=== PATIENT | female | born 2000 | race Caucasian/White ===

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

== ENCOUNTER 2019-03-25 22:57 | Emergency (ER) | payer BC, OTHER ==
[~2019-03-25] VITALS: Ht 172.7 cm; Wt 118.0 kg
[~2019-03-25 22:57] MED LIST: Flexeril; fLEXERIL
[2019-03-26 00:25] LABS: CLARITY,URINE SL CLOUDY; COLOR,URINE YELLOW
[2019-03-26 00:26] LABS: AMORPHOUS SEDIMENT,UR LARGE AMOR PHOSPHATE /LPF; BACTERIA,URINE NEGATIVE /HPF; BILIRUBIN,URINE NEGATIVE (NEGATIVE); GLUCOSE, URINE (UA) NEGATIVE (NEGATIVE); KETONES,URINE NEGATIVE (NEGATIVE); LEUKOCYTE ESTERASE ,URINE NEGATIVE (NEGATIVE); NITRITE,URINE NEGATIVE (NEGATIVE); PROTEIN,URINE NEGATIVE (NEGATIVE); RBC,URINE 0-2 /HPF; WBC,URINE 0-2 /HPF
[2019-03-26] MEDS ORDERED: RX-DOXYCYCLINE 100 MG (VIBRAMYCIN) TAB PPK#2 PO STA (01:59)
[2019-03-26] MEDS ORDERED: BENZONATATE 100 MG (TESSALON) CAPSULE PO SCH (02:00)
[2019-03-26] MEDS ORDERED: BENZ100C18 PO (02:01)
[2019-03-26] MEDS ORDERED: DOXY100C42 PO (02:01)
[2019-03-26] MEDS ORDERED: GUAI1TBM19 PO (02:01)
[2019-03-26] MEDS ORDERED: METH4TAB PO (02:01)
--- NOTE | 2019-03-26 02:01 | ED Cough/URI ---
General Chief Complaint: Cough/Cold/Flu Symptoms Stated Complaint: COUGH,ABD PAIN Nursing Triage Note: AMBULATORY TO ED ROOM 8 WITH C/O COUGH X5 DAYS AND RIGHT AND LEFT FLANK PAIN. HAS TAKEN OTC MEDICATIONS WITHOUT RELIEF. Sepsis Screen: No Definite Risk Source: patient History of Present Illness Date Seen by Provider: Mar 26, 2019 Time Seen by Provider: 00:10 Initial Comments PT ARRIVES VIA POV FROM HOME C/O PRODUCTIVE COUGH FOR 5 DAYS, WITH CLEAR TO YELLOW SPUTUM HAS HAD BILATERAL FLANK PAIN / BILATERAL LATERAL CHEST-RIB PAIN FOR THE LAST 2-3 DAYS C/O SHORTNESS OF BREATH NO KNOWN FEVER, BUT HAS NOT CHECKED TEMP NO HEADACHE NO BODY ACHES NO NAUSEA/VOMITING NO URINARY SYMPTOMS HAS NOT SOUGHT CARE UNTIL TODAY SYMPTOMS NO DIFFERENT TODAY NO RELIEF WITH OTC MEDICATIONS FOR COUGH/CONGESTION. LMP 2 WEEKS AGO, AND STARTED AGAIN TODAY. HAS BEEN SPOTTING EVERY 1-2 WEEKS FOR THE LAST 2 MONTHS. HAS NEXPLANON IN PLACE FOR THE LAST 2 YEARS. PCP: DHIRAJ JOHNS AT [facility] Allergies and Home Medications Allergies Coded Allergies: No Known Drug Allergies (Unverified , 08/25/17) Home Medications Benzonatate 100 Mg Capsule, 1-2 TAB PO TID Prescribed by: ROLANDO MCMAHON on 03/26/19200 Doxycycline Monohydrate 100 Mg Capsule, 100 MG PO BID Prescribed by: ROLANDO MCMAHON on 03/26/19200 Guaifenesin/Dextromethorphan 1 Each Tbmp.12hr, 1 EACH PO BID Prescribed by: ROLANDO MCMAHON on 03/26/19200 Methylprednisolone 4 Mg Tab.ds.pk, 4 MG PO UD Prescribed by: ROLANDO MCMAHON on 03/26/19200 [Flexeril] , 5 MG twice a day Prescribed by: JOSUE TUCKER on 08/25/17 1513 [fLEXERIL] , 5 MG TWICE A DAY Prescribed by: JOSUE TUCKER on 08/25/17 1525 Patient Home Medication List Home Medication List Reviewed: Yes Review of Systems Review of Systems Constitutional: no symptoms reported; No chills, No diaphoresis, No dizziness, No fever EENTM: see HPI; No nose congestion, No throat pain Respiratory: see HPI, cough, phlegm, short of breath Cardiovascular: see HPI, chest pain Gastrointestinal: see HPI; No nausea, No vomiting Genitourinary: no symptoms reported Musculoskeletal: see HPI, back pain Skin: no symptoms reported Psychiatric/Neurological: No Symptoms Reported Hematologic/Lymphatic: No Symptoms Reported Immunological/Allergic: no symptoms reported Past Kazcogk-Rboygj-Dqiohe Hx Past Med/Social Hx: Reviewed and Corrections made Patient Social History Alcohol Use: Denies Use Recreational Drug Use: Yes (THC) Drug of Choice: MARIJUANA Smoking Status: Current Everyday Smoker (1/2 PPD) Type Used: Cigarettes (1/2 PPD) Recent Foreign Travel: No Contact w/Someone Who Travel: No Recent Infectious Disease Expo: No Recent Hopitalizations: No Physical Abuse: No Sexual Abuse: No Mistreated: No Fear: No Seasonal Allergies Seasonal Allergies: No Past Medical History Surgeries: No Respiratory: Yes Asthma Cardiac: No Neurological: No : No Reproductive Disorders: No Genitourinary: No Gastrointestinal: No Musculoskeletal: No Endocrine: No HEENT: No Cancer: No Psychosocial: Yes Anxiety, Depression Integumentary: No Blood Disorders: No Physical Exam Vital Signs - First Documented 03/26/19 03/26/19 00:03 02:14 Temp 36.9 Pulse 82 Resp 18 B/P (MAP) 141/87 (105) Pulse Ox 98 O2 Delivery Room Air Capillary Refill : Less Than 3 Seconds Height: 5'8.00" Weight: 250lbs. oz. 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, no motor/sensory deficits, alert, normal mood/affect, oriented x 3 Skin: normal color, warm/dry, tattoos/piercings Progress/Results/Core Measures Suspected Sepsis Recent Fever Within 48 Hours: No Infection Criteria Present: Suspected New Infection New/Unexplained Altered Menta: No Sepsis Screen: No Definite Risk SIRS Temperature: Pulse: 82 Respiratory Rate: 18 Blood Pressure 141 /87 Mean: 105 Results/Orders Lab Results Laboratory Tests Test 03/26/19 00:10 Range/Units Urine Color YELLOW Urine Clarity SL CLOUDY Urine pH 8.0 5-9 Urine Specific Hayden 1.020 1.016-1.022 Urine Protein NEGATIVE NEGATIVE Urine Glucose (UA) NEGATIVE NEGATIVE Urine Ketones NEGATIVE NEGATIVE Urine Nitrite NEGATIVE NEGATIVE Urine Bilirubin NEGATIVE NEGATIVE Urine Urobilinogen 0.2 < = 1.0 MG/DL Urine Leukocyte Esterase NEGATIVE NEGATIVE Urine RBC (Auto) 3+ H NEGATIVE Urine RBC 0-2 /HPF Urine WBC 0-2 /HPF Urine Crystals PRESENT H /LPF Urine Amorphous Sediment LARGE BLANCA PHOSPHATE H /LPF Urine Bacteria NEGATIVE /HPF Urine Casts NONE /LPF Urine Mucus NEGATIVE /LPF Urine Culture Indicated NO Micro Results Microbiology 03/26/19 Influenza Types A,B Antigen (STEVE) - Final, Complete My Orders Orders - ROLANDO MCMAHON DO Urine Bedside (03/26/19 00:09) Ua Culture If Indicated (03/26/19 00:09) Influenza A And B Antigens (03/26/19 00:09) Chest Pa/Lat (2 View) (03/26/19 00:17) Rx-Doxycycline Tablet (Rx-Vibramycin Tab (03/26/19 01:59) Benzonatate Capsule (Tessalon Perles) (03/26/19 02:00) Vital Signs/I&O 03/26/19 03/26/19 03/26/19 00:03 00:03 02:14 Temp 36.9 36.9 Pulse 82 88 Resp 18 18 B/P (MAP) 141/87 (105) 133/88 (105) Pulse Ox 98 O2 Delivery Room Air Room Air Capillary Refill : Less Than 3 Seconds Blood Pressure Mean: 105 Diagnostic Imaging Comments CXR--NO ACUTE PROCESS, PENDING RADIOLOGIST REVIEW Reviewed: Reviewed by Me Departure Impression Primary Impression: Bronchitis Additional Impression: Chest wall pain Disposition: 01 HOME, SELF-CARE Condition: Stable Departure-Patient Inst. Referrals: [facility] (PCP/Family) Primary Care Physician Patient Instructions: Acute Bronchitis, Adult (DC), Costochondritis (DC) Add. Discharge Instructions: LOTS OF CLEAR LIQUIDS TYLENOL NEEDED FOR PAIN OR FEVER FOLLOW UP WITH [facility] IN 3-4 DAYS IF NO BETTER All discharge instructions reviewed with patient and/or family. Voiced understanding. Scripts Guaifenesin/Dextromethorphan (Mucinex Dm ER 1,200-60 mg Tab) 1 Each Tbmp.12hr 1 EACH PO BID for 10 Days, #20 EA Prov: ROLANDO MCMAHON DO 03/26/19 Benzonatate (TESSALON PERLES) 100 Mg Capsule 1-2 TAB PO TID for Cough, #30 CAP Prov: ROLANDO MCMAHON DO 03/26/19 Methylprednisolone (Medrol) 4 Mg Tab.ds.pk 4 MG PO UD, #1 PKG Prov: ROLANDO MCMAHON DO 03/26/19 Doxycycline Monohydrate (Doxycycline Monohydrate) 100 Mg Capsule 100 MG PO BID, #20 CAP Prov: ROLANDO MCMAHON DO 03/26/19 ROLANDO MCMAHON DO Mar 26, 2019 02:01
[2019-03-26 02:14] VITALS: BP 133/88
--- NOTE | 2019-03-26 05:45 | Diagnostic Imaging Report ---
INDICATION: Chest tightness COMPARISON: None FINDINGS: Frontal and lateral views of the chest demonstrate normal heart size and pulmonary vascularity. The lungs are clear. There are no signs of infiltrate, pleural effusions or pneumothoraces. The visualized osseous structures show no acute abnormalities. IMPRESSION: 1. No acute process. No signs of infiltrates, effusions or pneumothoraces. Dictated by: Dictated on workstation # [id number]
== END 2019-03-26 02:15 | disposition home or self-care (01) ==
LOC: EDUNIT# 22:57 → ER 22:59
DX: J40 Bronchitis, not specified as acute or chronic (principal); R07.89 Other chest pain; J45.909 Unspecified asthma, uncomplicated; F17.210 Nicotine dependence, cigarettes, uncomplicated
CPT/HCPCS: 71046; 81000; 84703; 87804

== ENCOUNTER 2019-10-22 14:02 | Emergency (ER) | payer BC ==
[~2019-10-22] VITALS: Ht 172 cm; Wt 99.7 kg
[~2019-10-22 14:02] MED LIST changes: +BENZ100C18 PO; +DOXY100C42 PO; +GUAI1TBM19 PO; +METH4TAB PO
--- NOTE | 2019-10-22 14:44 | ED Cough/URI ---
General Stated Complaint: COVID SYMPTOMS Source: patient Exam Limitations: no limitations History of Present Illness Date Seen by Provider: Oct 22, 2019 Time Seen by Provider: 14:26 Initial Comments Here with report of cough, low-grade fever, mild shortness of breath, vomiting and mild stomach upset. She is also told weeks . Unsure about exposure. Does complain of nasal congestion limiting smell. Follows with Dr. Clay. Timing/Duration: other (2 days) Severity/Quality: mild Modifying Factors: Worse With Coughing; Improves With Rest Associated Symptoms: cough, fever/chills, nasal congestion, shortness of breath, sore throat Allergies and Home Medications Allergies Coded Allergies: No Known Drug Allergies (Unverified , 08/25/17) Home Medications Benzonatate 100 Mg Capsule, 1-2 TAB PO TID Prescribed by: ROLANDO MCMAHON on 03/26/19200 Doxycycline Monohydrate 100 Mg Capsule, 100 MG PO BID Prescribed by: ROLANDO MCMAHON on 03/26/19200 Guaifenesin/Dextromethorphan 1 Each Tbmp.12hr, 1 EACH PO BID Prescribed by: ROLANDO MCMAHON on 03/26/19200 Methylprednisolone 4 Mg Tab.ds.pk, 4 MG PO UD Prescribed by: ROLANDO MCMAHON on 03/26/19200 [Flexeril] , 5 MG twice a day Prescribed by: JOSUE TUCKER on 08/25/17 1513 [fLEXERIL] , 5 MG TWICE A DAY Prescribed by: JOSUE TUCKER on 08/25/17 1525 Patient Home Medication List Home Medication List Reviewed: Yes Review of Systems Review of Systems Constitutional: see HPI; No chills, No fever EENTM: see HPI Respiratory: see HPI Cardiovascular: no symptoms reported Gastrointestinal: abdominal pain, nausea, vomiting Genitourinary: no symptoms reported Musculoskeletal: no symptoms reported Psychiatric/Neurological: Headache; Denies Weakness Past Ngosxxa-Uopfbd-Fzidhr Hx Past Med/Social Hx: Reviewed Nursing Past Med/Soc Hx Patient Social History Alcohol Use: Denies Use Recreational Drug Use: No Drug of Choice: MARIJUANA Smoking Status: Current Everyday Smoker Type Used: Cigarettes Recent Hopitalizations: No Seasonal Allergies Seasonal Allergies: No Past Medical History Surgeries: No Respiratory: Yes Asthma Cardiac: No Neurological: No Reproductive Disorders: No Genitourinary: No Gastrointestinal: No Musculoskeletal: No Endocrine: No HEENT: No Cancer: No Psychosocial: Yes Anxiety, Depression Integumentary: No Blood Disorders: No Family Medical History Reviewed Nursing Family Hx No Pertinent Family Hx Physical Exam Capillary Refill : Height: 5'8.00" Weight: 250lbs. oz. 113.187169ah; 39.00 BMI Method:Stated General Appearance: WD/WN, no apparent distress HEENT: PERRL/EOMI, pharyngeal erythema, other (Mild erythema of both TMs) Neck: full range of motion, supple Respiratory: lungs clear, normal breath sounds Cardiovascular: regular rate, rhythm, no murmur Neurologic/Psychiatric: alert, oriented x 3 Skin: normal color, warm/dry Progress/Results/Core Measures Suspected Sepsis SIRS Temperature: Pulse: Respiratory Rate: Blood Pressure / Mean: Results/Orders Vital Signs/I&O Capillary Refill : Progress Note : Progress Note Seen and evaluated. Patient's main concern is COVID-19. Vital signs normal. COVID-19 screening swab done. Discharged home with return precautions. Patient verbalize understanding instructions and agreement with plan. Departure Impression Primary Impression: Viral upper respiratory infection Additional Impression: COVID-19 evaluation Disposition: 01 HOME, SELF-CARE Condition: Improved Departure-Patient Inst. Decision time for Depature: 14:43 Referrals: [facility] (PCP[facility]Family) Primary Care Physician Patient Instructions: Coronavirus Disease 2019 (COVID-19) (DC) Add. Discharge Instructions: Drink plenty of fluids and get plenty of rest. You will need to remain on q uarantine until test results are noted. If they are negative, you will need to be isolated for 3 days after symptoms resolve. If they are positive, the health department will call you and direct quarantine timeframe. You may take Tylenol/acetaminophen 1000 mg every 8 hours as needed for fever. Return for worse pain, fever, vomiting, weakness, breathing problems or other concerns as needed. You may follow-up with Dr. Clay via phone for other concerns and/or work note if needed. XAVIER JULES MD Oct 22, 2019 14:44
[2019-10-22 14:55] VITALS: BP 132/85
[2019-10-22] MEDS ORDERED: RT-ALBUINH IH (15:34)
--- OUTSIDE RECORDS SUMMARY | 2019-10-22 15:50 | XMS REPORT | Continuity of Care Document ---
Demographics Preferred Language Unknown Marital Status Unknown Denominational Affiliation Unknown Race Unknown Ethnic Group Unknown Author Organization Unknown Address Unknown Phone Unavailable Allergies Active Description Code Type Severity Reaction Onset Reported/Identified Relationship to Patient Clinical Status Yes No Known Drug Allergies [id number] Drug Allergy Unknown N/A 08/25/2017 Medications There is no data. Problems Date Dx Coded Attending Type Code Diagnosis Diagnosed By 08/25/2017 CAITLIN DALE, JOSUE Howard Ot M54 .5 LOW BACK PAIN 08/27/2017 JOSUE TUCKER MD Ot M54 .5 LOW BACK PAIN 09/05/2017 A V70.5 HEAL TH EXAMINATION OF DEFINED SUBPOPULATIONS 09/05/2017 A Z02.1 ENCO UNTER FOR PRE- EMPLOYMENT EXAMINATION 03/26/2019 LISANDRO DO, ROLANDO K Ot F17.210 NICOTINE DEPENDENCE, CIGARETTES, UNCOMPL 03/26/2019 LISANDRO DO, ROLANDO K Ot J40 BRONCHITIS, NOT SPECIFIED ACUTE OR CH 03/26/2019 LISANDRO DO, ROLANDO K Ot J45.909 UNSPECIFIED ASTHMA, UNCOMPLICATED 03/26/2019 LISANDRO DO, ROLANDO K Ot R05 COUGH 03/26/2019 LISANDRO DO, ROLANDO K Ot R07.89 OTHER CHEST PAIN 03/27/2019 LISANDRO DO, ROLANDO K Ot F17.210 NICOTINE DEPENDENCE, CIGARETTES, UNCOMPL 03/27/2019 LISANDRO DO, ROLANDO K Ot J40 BRONCHITIS, NOT SPECIFIED ACUTE OR CH 03/27/2019 LISANDRO DO, ROLANDO K Ot J45.909 UNSPECIFIED ASTHMA, UNCOMPLICATED 03/27/2019 LISANDRO DO, ROLANDO K Ot R05 COUGH 03/27/2019 LISANDRO DO, ROLANDO K Ot R07.89 OTHER CHEST PAIN Procedures There is no data. Results Test Result Range Measles/Mumps/Rubella Immunity - 8 11:03 Rubella Antibodies, IgG 4.20 index Immun e >0.99 Rubeola Ab, IgG 33.5 AU/mL Immune >29.9 Mumps Abs, IgG 119.0 AU/mL Immune >10.9 Hep B Surface Ab - 09/05/17 11:03 Hep B Surface Ab, Qual Reactive Varicella-Zoster V Ab, IgG - 09/05/17 11 :03 Varicella Zoster IgG <135 index Immune > 165 Drug Screen + ETOH - 09/05/17 11:03 Interior Decorator Painting Carlie Resendez Donor ID By Photo ID Ethanol, Urine <10.00 mg/dL 20.00-80.00 Location [facility] Reason For Test Pre-Employment Temperature In Range YES Deg F 90.00-100 .00 Urine Amphetamines NEGATIVE Urine Barbiturates NEGATIVE Urine Benzodiazepines NEGATIVE Urine Cocaine NEGATIVE Urine MDMA NEGATIVE Urine Methadone NEGATIVE Urine Methamphetamines NEGATIVE Urine Opiates NEGATIVE Urine Oxycodone NEGATIVE Urine PCP NEGATIVE Urine THC Metabolite NEGATIVE Varicella-Zoster V Ab, IgG - 09/05/17 11 :03 VARICELLA ZOSTER IGG <135 INDEX IMMUNE > 165 TSH - 07/14/18 14:55 TSH 3.65 mIU/L NRG CULTURE, THROAT - 09/24/18 13:21 CULTURE, THROAT SEE NOTE NRG CULTURE, ANAEROBIC AND AEROBIC - 9 14:50 CULTURE, ANAEROBIC BACTERIA W/GRAM STAIN SEE NOTE NRG CULTURE, AEROBIC BACTERIA SEE NOTE NRG GC/CHLAMYDIA (SWAB OR URINE)-RAPID - 06/24 16:52 CHLAMYDIA TRACHOMATIS RNA, TMA NOT DETECTED NOT DETECTED NEISSERIA GONORRHOEAE RNA, TMA NOT DETECTED NOT DETECTED COMMENT NRG CULTURE, GENITAL - 01/08/19 16:52 CULTURE, GENITAL SEE NOTE NRG Complete urinalysis with reflex to cultu re - 03/26/19 00:10 Urine color determination YELLOW NRG Urine clarity determination SL CLOUDY N RG Urine pH measurement by test strip 8.0 5-9 Specific gravity of urine by test strip 1.020 1.016-1.022 Urine protein assay by test strip, semi-quantitative NEGATIVE NEGATIVE Urine glucose detection by automated test strip NE GATIVE NEGATIVE Erythrocytes detection in urine sediment by light micr oscopy 3+ NEGATIVE Urine ketones detection by automated test strip NE GATIVE NEGATIVE Urine nitrite detection by test strip NEGATIVE NEGATIVE Urine total bilirubin detection by test strip NEGA TIVE NEGATIVE Urine urobilinogen measurement by automated test strip (mass/volume) 0.2 mg/dL < = 1.0 Urine leukocyte esterase detection by dipstick NEG ATIVE NEGATIVE Automated urine sediment erythrocyte cou nt by microscopy (number/high power field) [HPF] NRG Automated urine sediment leukocyte count by microscopy (number/high power field) [HPF] NRG Bacteria detection in urine sediment by light microsco py NEGATIVE NRG Crystals detection in urine sediment by light microsco py PRESENT NRG Casts detection in urine sediment by light microscopy NONE NRG Mucus detection in urine sediment by light microscopy NEGATIVE NRG Complete urinalysis with reflex to culture NO NRG Amorphous sediment detection in urine sediment by ligh t microscopy LARGE BLANCA PHOSPHATE NRG Influenza virus A and B antigen detectio n - 03/26/19 00:17 FLU RESULT NEGATIVE FOR INFLUENZA A AND B ANTIGENS BY IA NRG TEST, SERUM (QUAL) - 08/27/19 14:03 HCG, TOTAL, QL POSITIVE See Note: Encounters ACCT No. Visit Date/Time Discharge Status Pt. Type Provider Facility Loc./Unit Complaint [id number] 09/06/2017 14:18:00 Document Registration [id number] 08/27/2019 14:00:00 08/27/2019 23:59:5 9 CLS Outpatient SUDHIR JOHNS [facility] [id number] 08/27/2019 14:00:00 Document Registration [id number] 01/08/2019 15:40:00 Document Registration [id number] 11/13/2018 10:40:00 Document Registration [id number] 09/24/2018 12:20:00 Document Registration [id number] 07/14/2018 14:00:00 Document Registration [id number] 09/05/2017 10:57:00 Document Registration [id number] 07/14/2018 14:00:00 07/14/2018 23:59:5 9 CLS Outpatient JAMIE CACERES LAC [facility] [id number] 03/25/2019 22:59:00 019 02:15:00 DIS Emergency ROLANDO MCMAHON DO a [facility] ER COUGH,ABD PAIN [id number] 08/25/2017 12:07:00 018 15:45:00 DIS Emergency CAITLIN DALE, JOSUE Bowman [facility] ER BACK PAIN/WORK COMP
== END 2019-10-22 14:55 | disposition home or self-care (01) ==
LOC: EDUNIT# 14:02 → ER 14:06
DX: J06.9 Acute upper respiratory infection, unspecified (principal); J45.909 Unspecified asthma, uncomplicated; F17.210 Nicotine dependence, cigarettes, uncomplicated; Z20.828 Contact with and (suspected) exposure to other viral communicable diseases; Z79.52 Long term (current) use of systemic steroids
CPT/HCPCS: 99282; U0002; 87635

== ENCOUNTER → 2019-12-15 | Outpatient (CLI) | payer BC ==
[~2019-12-15] MED LIST changes: +RT-ALBUINH IH
--- NOTE | 2019-12-15 14:03 | Diagnostic Imaging Report ---
INDICATION: Size and dates. TECHNIQUE: Multiple real-time grayscale images were obtained over the gravid uterus. COMPARISON: None. FINDINGS: There is a single living intrauterine . The fetus is in a cephalic presentation. The biometry correlates with a gestational age of 20 weeks 2 days. The placenta is posterior. There is no previa. Amniotic fluid index is 9.8. Cervical length is 7.5 cm. The anatomical survey is unremarkable. This includes three-vessel cord and four-chambered heart. The heart rate is 144 bpm. The maternal adnexa is unremarkable. Biometrical measurements are as follows: Biparietal 4.48 cm, age 19 weeks 4 days. Head circumference 17.50 cm, age 20 weeks 1 days. Abdominal circumference 15.05 cm, age 20 weeks 3 days. Femur length 3.34 cm, age 20 weeks 4 days. Sonographic estimate age: 20 weeks 2 days. Sonographic estimated date of delivery: 05/01/2020. Estimated Weight: 345 gm (+/- 50 gm). LMP percentile: 55%. heart rate: 144 beats per minute. number: 1 of 1. IMPRESSION: Single living intrauterine with sonographically estimated gestational age of 20 weeks 2 days and estimated date of confinement May 01, 2020. Dictated by: Dictated on workstation # [id number]
== END ==
LOC: RAD 12:00
PROVIDERS: ATTEND Nurse Practitioner Women's Health
DX: Z34.92 Encounter for supervision of normal pregnancy, unspecified, second trimester (principal); Z3A.20 20 weeks gestation of pregnancy
CPT/HCPCS: 76805

== ENCOUNTER 2020-03-03 23:13 | Emergency (ER) | payer BC, MEDICAID ==
[~2020-03-03] VITALS: Ht 172.7 cm; Wt 115.8 kg
--- NOTE | 2020-03-03 23:43 | ED General ---
General Chief Complaint: OB > 20 WEEKS Stated Complaint: PREG CK Nursing Triage Note: Patient is concerned about decreased movement. Patient states she counted kicks today and had 4 in 4 hours. Nursing Sepsis Screen: No Definite Risk Source of Information: Patient History of Present Illness Date Seen by Provider: Mar 03, 2020 Time Seen by Provider: 23:18 Initial Comments 19-year-old female that is presenting at 31 weeks and 4/7 days EGA. She reports having decreased movement in the last 48 hours. She had count and approximately 4 kicks in about 4 hours with the last one around 2029. She has had no vaginal bleeding or discharge. She has had some low back pain and c ramping that felt that it was related to her uterus stretching. She has no pain or burning with urination. She denies any fever or chills. Allergies and Home Medications Allergies Coded Allergies: No Known Drug Allergies (Unverified , 08/25/17) Home Medications Albuterol Sulfate 1 Puff Puff, 2 PUFF IH Q4H PRN for WHEEZING 1 PUFF = 90 MCG Prescribed by: XAVIER JULES on 10/22/19 153 Benzonatate 100 Mg Capsule, 1-2 TAB PO TID Prescribed by: ROLANDO MCMAHON on 03/26/19200 Doxycycline Monohydrate 100 Mg Capsule, 100 MG PO BID Prescribed by: ROLANDO MCMAHON on 03/26/19200 Guaifenesin/Dextromethorphan 1 Each Tbmp.12hr, 1 EACH PO BID Prescribed by: ROLANDO MCMAHON on 03/26/19200 Methylprednisolone 4 Mg Tab.ds.pk, 4 MG PO UD Prescribed by: ROLANDO MCMAHON on 03/26/19200 [Flexeril] , 5 MG twice a day Prescribed by: JOSUE TUCKER on 08/25/17 1513 [fLEXERIL] , 5 MG TWICE A DAY Prescribed by: JOSUE TUCKER on 08/25/17 1525 Patient Home Medication List Home Medication List Reviewed: Yes Review of Systems Review of Systems Constitutional: No chills, No fever EENTM: no symptoms reported Respiratory: no symptoms reported Cardiovascular: no symptoms reported Gastrointestinal: no symptoms reported Genitourinary: see HPI : Yes (31 weeks 4/7 days) Musculoskeletal: no symptoms reported Skin: no symptoms reported Psychiatric/Neurological: No Symptoms Reported Past Aodxwfs-Azonxc-Usergz Hx Past Med/Social Hx: Reviewed Nursing Past Med/Soc Hx Patient Social History Alcohol Use: Denies Use Recreational Drug Use: No Drug of Choice: MARIJUANA Smoking Status: Current Everyday Smoker Type Used: Cigarettes Recent Foreign Travel: No Contact w/Someone Who Travel: No Recent Infectious Disease Expo: No Recent Hopitalizations: No Physical Abuse: No Sexual Abuse: No Mistreated: No Fear: No Immunizations Up To Date PED Vaccines UTD: Yes Seasonal Allergies Seasonal Allergies: No Past Medical History Surgeries: No Respiratory: Yes Asthma Cardiac: No Neurological: No Reproductive Disorders: No Genitourinary: No Gastrointestinal: No Musculoskeletal: No Endocrine: No HEENT: No Cancer: No Psychosocial: Yes Anxiety, Depression Integumentary: No Blood Disorders: No Family Medical History No Pertinent Family Hx Physical Exam Vital Signs Vital Signs - First Documented 03/03/20 23:15 Temp 37.0 Pulse 90 Resp 20 B/P (MAP) 162/97 (118) Pulse Ox 96 O2 Delivery Room Air Capillary Refill : Less Than 3 Seconds Height, Weight, BMI Height: 5'8.00" Weight: 250lbs. oz. 113.065943dz; 38.00 BMI Method:Stated General Appearance: WD/WN, Anxious HEENT: PERRL/EOMI Neck: Non Tender, Supple Respiratory: Chest Non Tender, Lungs Clear, Normal Breath Sounds Cardiovascular: Regular Rate, Rhythm Gastrointestinal: Normal Bowel Sounds, No Pulsatile Mass, Non Tender, Soft, Other (gravid uterus with FHT 140s) Neurologic/Psychiatric: Alert, Oriented x3, No Motor/Sensory Deficits Skin: Normal Color, Warm/Dry Progress/Results/Core Measures Suspected Sepsis Recent Fever Within 48 Hours: No Infection Criteria Present: None New/Unexplained Altered Menta: No Sepsis Screen: No Definite Risk SIRS Temperature: Pulse: 90 Respiratory Rate: 20 Blood Pressure 162 /97 Mean: 118 Results/Orders Vital Signs/I&O 03/03/20 03/04/20 23:15 00:28 Temp 37.0 37.0 Pulse 90 90 Resp 20 20 B/P (MAP) 162/97 (118) 162/97 (118) Pulse Ox 96 96 O2 Delivery Room Air Capillary Refill : Less Than 3 Seconds Blood Pressure Mean: 118 Progress Note : Progress Note Reassured pt that FHTs were normal. Advised pt that the best treatment would be to go to labor and delivery for what is called a non stress test or NST. With this the heart tones could be monitored as well as the uterus to look for distress of the baby and contractions. It's encouraging that the heart tones were normal here. However it's a spot check versus monitoring for a longer period of time. Initially patient was reluctant to do this and thought she might wait and do it during the day tomorrow. I did discuss with her about how to go home and drink orange juice or a sugary drink and monitor kicks and movements. If not improved or having more problems then definitely go to Labor and delivery. I also will contact Dr. Baker cold roll packer sheet iron for Dr. Clay about recommendations. Page Dr. Baker at [phone] Baker so check with L&D to see if she might be involved in C section or delivery but they stated she was not there at the hospital. I then when to discuss with the pt that I strongly encourage her to go for NST as I could not tell her that everything was ok with the baby without doing more monitoring than just a spot check of FHT. She still was thinking she would go home and try to rest and do check on kicks there then if not better go down later tonight or during the day on Saturday. She was just relieved that the baby was alive with finding heart tones. 0016 Dr. Baker called as I was printing discharge information for the patient. She stated that with the phone number coming up as unrecognized it went to voicemail and took longer to come through for her. She reviewed the case with me and agreed that the best course of action would be a NST. I went back in room and with reassurance of Dr. Baker stating pt needs NST and to go tonight the pt agreed she would go down to have the testing/monitoring done. L&D notified pt would be coming down. Departure Impression Primary Impression: Decreased movement affecting management of in third trimester Qualified Codes: O36.8130 - Decreased movements, third trimester, not applicable or unspecified Disposition: 01 HOME, SELF-CARE Condition: Stable Departure-Patient Inst. Decision time for Depature: 00:13 Referrals: [facility] (PCP/Family) Primary Care Physician FENECH,ALBA S DO Patient Instructions: Movement, Monitoring Add. Discharge Instructions: Try resting in a cool dark room and drink a sugar containing drink such as orange juice. Then concentrate on your baby's movement. If not improved or having worsening problems then the next step would be to go to Labor and Delivery where they could do monitoring of the baby and your uterus to ensure you are not having contractions and to check for stress of the baby. Continue to stay well hydrated and drink plenty of water and fluids. All discharge instructions reviewed with patient and/or family. Voiced understanding. DONALD KEYES MD Mar 03, 2020 23:43
[2020-03-04 00:28] VITALS: BP 162/97
[2020-03-04] MEDS ORDERED: PREN-142 PO ×2 (03:04)
[2020-03-04] MEDS ORDERED: SERT25TA PO ×2 (03:04)
== END 2020-03-04 00:28 | disposition home or self-care (01) ==
LOC: EDUNIT# 23:13 → ER FS 23:16
DX: O36.8130 Decreased fetal movements, third trimester, not applicable or unspecified (principal); Z3A.31 31 weeks gestation of pregnancy; F41.9 Anxiety disorder, unspecified; J45.909 Unspecified asthma, uncomplicated; F17.210 Nicotine dependence, cigarettes, uncomplicated; Z79.52 Long term (current) use of systemic steroids

== ENCOUNTER 2020-03-04 01:47 | Outpatient (CLI) | payer MEDICAID ==
[~2020-03-04] VITALS: Ht 172.7 cm; Wt 115.5 kg
--- NOTE | 2020-03-04 02:00 | NUR ---
RAE MOSQUEDA presented to unit via ambulation from home/FS ER/ED, by self, with c/o CRAMPING,NO MOVEMENT. RAE MOSQUEDA weighed, gowned, voided, and to bed. EFHM and TOCO applied, VS taken. RAE MOSQUEDA oriented to bed controls, call light, TV, heat, and A/C controls.
[2020-03-04 02:10] VITALS: BP 131/61
[2020-03-04 02:29] VITALS: BP 121/69
[2020-03-04 02:29] LABS: BILIRUBIN,URINE NEGATIVE (NEGATIVE); CLARITY,URINE CLEAR; COLOR,URINE OTHER; GLUCOSE, URINE (UA) TRACE (NEGATIVE); KETONES,URINE NEGATIVE (NEGATIVE); LEUKOCYTE ESTERASE ,URINE NEGATIVE (NEGATIVE); NITRITE,URINE NEGATIVE (NEGATIVE); PH,URINE 6.5 (5-9); PROTEIN,URINE NEGATIVE (NEGATIVE)
[2020-03-04 02:43] LABS: BACTERIA,URINE TRACE /HPF; SQUAMOUS EPITHELIAL CELL,UR 0-2 /HPF; WBC,URINE 0-2 /HPF
[2020-03-04] MEDS ORDERED: PREN-142 PO ×2 (03:04)
[2020-03-04] MEDS ORDERED: SERT25TA PO ×2 (03:04)
--- NOTE | 2020-03-04 03:15 | NUR ---
D/C instructions given & explained, reassurance given, questions answered regarding POC, & protocols for when pt. delivers, pt. verbalized understanding & appreciative, signed D/C instructions. Copy of D/C instructions to pt. Pt. left [facility] ambulatory on own, to home via private vehicle.
--- NOTE | 2020-03-07 11:04 | Physician Query-Final Dx ---
Clinic Account Progress/Dx Physician Query: Please give diagnosis Please include # weeks gestation Date of Service Mar 04, 2020 at 01:47 ERIC CORDOVA Mar 07, 2020 11:04
== END 2020-03-04 03:15 | disposition home or self-care (01) ==
LOC: WSo 01:47 → LDRP 01:49 → WSo 03:15
PROVIDERS: ATTEND Obstetrics & Gynecology
DX: O36.8130 Decreased fetal movements, third trimester, not applicable or unspecified (principal); Z3A.31 31 weeks gestation of pregnancy
CPT/HCPCS: 81000; 99212

== ENCOUNTER 2020-05-01 11:45 | Inpatient (IN) | payer MEDICAID ==
[~2020-05-01] VITALS: Ht 172.7 cm; Wt 127.1 kg
[~2020-05-01 11:45] MED LIST changes: +PREN-142 PO; +SERT25TA PO
--- NOTE | 2020-05-01 19:45 | NUR ---
RAE MOSQUEDA presented to unit via ambulation from ED, accompanied by Friend, with c/o INDUCTION. RAE MOSQUEDA weighed, gowned, voided, and to bed. EFHM and TOCO applied, VS taken. RAE MOSQUEDA oriented to bed controls, call light, TV, heat, and A/C controls.
[2020-05-01 20:00] VITALS: BP 116/60
[2020-05-01] MEDS ORDERED: LIDOCAINE/EPI 2% 1:200,00 (XYLOCAINE) 10 ML VIAL INJ PRN (20:00)
[2020-05-01] MEDS ORDERED: MISOPROSTOL 100 MCG (CYTOTEC) TAB PO ONE (20:00)
[2020-05-01] MEDS ORDERED: TERBUTALINE INJ 1 MG/ML (BRETHINE) AMP SC PRN (20:00)
[2020-05-01 20:03] VITALS: BP 116/60
[2020-05-01 20:34] LABS: BASOPHILS % (AUTO) 0 % (0-10); EOSINOPHILS # (AUTO) 0.1 10^3/uL (0.0-0.3); EOSINOPHILS % (AUTO) 1 % (0-10); HEMATOCRIT 34 % (35-52); HEMOGLOBIN 11.3 g/dL (11.5-16.0); LYMPHOCYTES # (AUTO) 2.2 10^3/uL (1.0-4.0); LYMPHOCYTES % (AUTO) 17 % (12-44); MEAN CORPUSCULAR HEMOGLOBIN 30 pg (25-34); MEAN CORPUSCULAR HGB CONC 33 g/dL (32-36); MEAN CORPUSCULAR VOLUME 89 fL (80-99); MEAN PLATELET VOLUME 11.2 fL (9.0-12.2); MONOCYTES # (AUTO) 1.3 10^3/uL (0.0-1.0); MONOCYTES % (AUTO) 10 % (0-12); NEUTROPHILS # (AUTO) 9.2 10^3/uL (1.8-7.8); NEUTROPHILS % (AUTO) 71 % (42-75); PLATELET COUNT 236 10^3/uL (130-400); WHITE BLOOD COUNT 12.9 10^3/uL (4.3-11.0)
[2020-05-01] MEDS: D5 LR IV SOLUTION 1,000 ML IV SCH (20:35)
--- NOTE | 2020-05-01 21:10 | NUR ---
DR DESAI CALLED TO CHECK ON PT. REPORT GIVEN. NO NEW ORDERS RECEIVED.
[2020-05-01] MEDS ORDERED: CATHETER FLUSH 10 ML SYR IV SCH (22:00)
[2020-05-02] VITALS (65 sets, daily range): BP systolic 99–145; BP diastolic 52–83
[2020-05-02] MEDS: D5 LR IV SOLUTION 1,000 ML IV SCH ×3 (01:01→16:54)
[2020-05-02] MEDS: MISOPROSTOL 100 MCG (CYTOTEC) TAB PO SCH ×2 (01:01→04:48)
--- NOTE | 2020-05-02 07:00 | NUR ---
REPORT FROM CHARY XIE
[2020-05-02] MEDS ORDERED: OXYTOCIN PRE-MIX DRIP 500 ML IV SCH (07:45)
--- NOTE | 2020-05-02 08:01 | History & Physical-OB ---
OB - Chief Complaint & HPI Date/Time Date of Admission: Date of Admission: May 01, 2020 at 19:40 Date seen by a Provider: May 02, 2020 Time Seen by a Provider: 08:00 Chief Complaint/History OB-Reason for Admission/Chief: Induction of Labor Hx : 1 Hx Para: 0 Expected Date of Delivery: May 02, 2020 Gestational Age in Weeks: 39 Gestational Age in Days: 6 Admission Nurse Assessment Rev: Yes Allergies and Home Medications Allergies Coded Allergies: No Known Drug Allergies (Unverified , 08/25/17) Home Medications Albuterol Sulfate 1 Puff Puff, 2 PUFF IH Q4H PRN for WHEEZING 1 PUFF = 90 MCG Prescribed by: XAVIER JULES on 10/22/19 1534 Vit No.124/Iron/FA 1 Each Tablet, 1 EACH PO DAILY, (Reported) Sertraline HCl 25 Mg Tablet, 25 MG PO DAILY, (Reported) Patient Home Medication List Home Medication List Reviewed: Yes OB - History Hx of Present Care: Yes Ultrasounds: Normal mid trimester US Obstetrical Complications: None Medical Complications: None Patient Past Medical History n/a Social History/Family History 2nd Hand Smoke Exposure: No OB - Admission Exam Physical Exam Vitals: Vital Signs 05/01/20 05/02/20 20:03 04:50 Temp 36.9 Pulse 76 Resp 16 B/P (MAP) 112/55 (74) Pulse Ox 97 O2 Delivery Room Air HEENT: NCAT Heart: Rhythm Normal Lungs: Clear Abdomen: Gravid Extremities: Normal Reflexes: Normal Cervical Dilatation: 1cm Effacement: 75% Station: -1 Membranes: Intact Heart Rate: 130's Accelerations: Accelerations Present Decelerations: No Decelerations Short Term Variability: Present Coordinator Cardiopulmonary Services Variability: Average (6-25) Contractions on Admission: 6-10 Minutes Apart Intensity: Mild Gaines Scoring Tool (Modified) Dilation (cm): 1-2cm (1) Effacement (%): 51-79% (2) Descent/Station: -1,0 (2) Cervix Consistency: Soft (2) Cervix Position: Anterior (2) Subtract 1 point for: Nulliparity (-1) Gaines Score: 8 Labs Laboratory Tests Test 05/01/20 20:15 05/01/20 21:25 Range/Units White Blood Count 12.9 H 4.3-11.0 10^3/uL Red Blood Count 3.82 3.80-5.11 10^6/uL Hemoglobin 11.3 L 11.5-16.0 g/dL Hematocrit 34 L 35-52 % Mean Corpuscular Volume 89 80-99 fL Mean Corpuscular Hemoglobin 30 25-34 pg Mean Corpuscular Hemoglobin Concent 33 32-36 g/dL Red Cell Distribution Width 13.3 10.0-14.5 % Platelet Count 236 130-400 10^3/uL Mean Platelet Volume 11.2 9.0-12.2 fL Immature Granulocyte % (Auto) 1 % Neutrophils (%) (Auto) 71 42-75 % Lymphocytes (%) (Auto) 17 12-44 % Monocytes (%) (Auto) 10 0-12 % Eosinophils (%) (Auto) 1 0-10 % Basophils (%) (Auto) 0 0-10 % Neutrophils # (Auto) 9.2 H 1.8-7.8 10^3/uL Lymphocytes # (Auto) 2.2 1.0-4.0 10^3/uL Monocytes # (Auto) 1.3 H 0.0-1.0 10^3/uL Eosinophils # (Auto) 0.1 0.0-0.3 10^3/uL Basophils # (Auto) 0.0 0.0-0.1 10^3/uL Immature Granulocyte # (Auto) 0.1 0.0-0.1 10^3/uL OB - Assessment/Plan/Diagnosis Assessment Assessment: induction of labor Admission Dx 19 yo @ 39 weeks Elective induction of labor Admission Status: Inpatient Order (span 2 midnights) Reason for Inpatient Admission: Induction of labor at term Plan Plan: Induction Induction Method: per Misoprostol Protocol ALBA DESAI DO May 02, 2020 08:01
--- NOTE | 2020-05-02 12:59 | NUR ---
Initial [employer] visit to offer blessings on the family in anticipation of . Engaged in rapport building with the pt and her mother, Jessica. Pt expressed feeling comforted by our visit.
[2020-05-02] MEDS ORDERED: HYDROmorphone 2 MG/ML VIAL (DILAUDID) ONE (14:57)
[2020-05-02] MEDS ORDERED: HYDROmorphone 2 MG/ML VIAL (DILAUDID) IV ONE (15:00)
[2020-05-02] MEDS ORDERED: fentaNYL 2 mcg/ml BUPIVA 0.125 100 ML ONE (19:35)
[2020-05-02] MEDS ORDERED: fentaNYL INJECTION 100 MCG/2 ML AMP ONE (20:13)
[2020-05-02] MEDS ORDERED: BUPIVACAINE 0.25% 30 ML (SENSORCAINE) VIAL ONE (20:13)
[2020-05-02] MEDS ORDERED: LIDOCAINE PF 2% 5 ML (XYLOCAINE) VIAL ONE (20:13)
[2020-05-02] MEDS ORDERED: NALOXONE 0.4 MG/ML 1 ML (NARCAN) VIAL IV PRN (20:45)
[2020-05-02] MEDS ORDERED: EPIDURAL (fentaNYL 2 MCG/ML BUPIVA 0.125%)100 ML BAG EPI PRN (20:45)
[2020-05-02] MEDS ORDERED: ONDANSETRON 4 MG/2 ML (SDV) Z0FRAN IV PRN (20:45)
[2020-05-02] MEDS ORDERED: LACTATED RINGERS 1,000 ML IV SCH (20:45)
[2020-05-02] MEDS ORDERED: diphenhydrAMINE 50 MG/ML INJ (BENADRYL) IV PRN (20:45)
[2020-05-03] VITALS (20 sets, daily range): BP systolic 99–145; BP diastolic 53–79
[2020-05-03] MEDS: D5 LR IV SOLUTION 1,000 ML IV SCH (00:27)
[2020-05-03] MEDS ORDERED: METHYLERGONOVINE 0.2 MG/ML (METHERGINE) AMP ONE (03:00)
[2020-05-03] MEDS ORDERED: MISOPROSTOL 200 MCG (CYTOTEC) TABLET ONE (03:04)
[2020-05-03] MEDS ORDERED: BENZOCAINE/MENTHOL (DERMOPLAST) 60 ML CAN TP PRN (03:15)
[2020-05-03] MEDS ORDERED: DIBUCAINE (NUPERCAINAL) 1% OINT 30 GM TOP PRN (03:15)
[2020-05-03] MEDS ORDERED: TETANUS,DIPTH,PERTUSS P/F (BOOSTRIX) 0.5 ML VIAL IM ONE (03:15)
[2020-05-03] MEDS ORDERED: OXYTOCIN PRE-MIX DRIP 500 ML IV SCH (03:15)
[2020-05-03] MEDS ORDERED: WITCH HAZEL(TUCKS) 40 EA JAR TOP PRN (03:15)
[2020-05-03] MEDS ORDERED: HYDROcodone/APAP 5 MG/325 MG (LORTAB) TAB PO PRN (03:15)
[2020-05-03] MEDS ORDERED: MEASLES,MUMPS,RUBELLA 1 EA INJ SQ ONE (03:15)
--- NOTE | 2020-05-03 03:21 | OB Labor & Delivery Record ---
L&D History Date of Service Date of Service: May 03, 2020 History Expected Date of Delivery: May 02, 2020 Gestational Age in Weeks: 39 Hx : 1 Hx Para: 0 Complications Events: Routine care Operative Indications (Cesarea: N/A-Vaginal Delivery Intrapartal Events: None L&D Stage1 Stage One Onset of Labor - Date: May 03, 2020 Monitors and Tracing Monitor Mode: Internal Heart Rate: 165 Monitor Accelerations: Uniform Monitor Decelerations: None Station: 0 Stain Maker Variability: Average (6-10) Short Term Variability: Present Presentation: Vertex Vital Signs VS - Last 72 Hours, by Label 05/01/20 05/01/20 05/02/20 05/02/20 20:00 20:03 04:50 08:00 Temp 36.9 36.9 36.9 36.9 Pulse 103 103 76 78 Resp 18 18 16 20 B/P (MAP) 116/60 (78) 112/55 (74) Pulse Ox 97 97 97 O2 Delivery Room Air Room Air 05/02/20 05/02/20 05/02/20 05/02/20 09:20 09:40 10:00 10:15 Pulse 77 81 73 72 Resp 20 20 20 20 B/P (MAP) 99/56 (70) 130/73 (92) 128/61 (83) 131/73 (92) Pulse Ox 97 97 99 98 O2 Delivery Room Air Room Air Room Air Room Air 05/02/20 05/02/20 05/02/20 05/02/20 10:30 10:45 11:00 11:15 Temp 36.6 Pulse 79 78 85 76 Resp 20 20 20 20 B/P (MAP) 112/58 (76) 115/54 (74) 120/61 (80) 133/80 (97) Pulse Ox 98 97 97 97 O2 Delivery Room Air Room Air Room Air Room Air 05/02/20 05/02/20 05/02/20 05/02/20 11:30 11:45 12:00 12:15 Pulse 79 72 72 72 Resp 20 20 20 20 B/P (MAP) 135/83 (100) 136/83 (100) 136/83 (100) 136/83 (100) Pulse Ox 97 97 O2 Delivery Room Air Room Air Room Air Room Air 1/05/02/20 05/02/20 05/02/20 12:30 12:45 13:00 13:15 Pulse 78 74 78 72 Resp 20 20 20 20 B/P (MAP) 137/74 (95) 140/80 (100) 139/67 (91) 133/73 (93) O2 Delivery Room Air Room Air Room Air Room Air 05/02/20 05/02/20 05/02/20 05/02/20 13:30 13:45 14:00 14:15 Temp 36.8 Pulse 74 72 75 71 Resp 20 20 20 20 B/P (MAP) 132/78 (96) 133/73 (93) 133/60 (84) 119/72 (88) O2 Delivery Room Air Room Air Room Air Room Air 05/02/20 05/02/20 05/02/20 05/02/20 14:30 14:45 15:00 15:15 Pulse 80 76 87 77 Resp 20 20 20 20 B/P (MAP) 126/68 (87) 131/79 (96) 130/70 (90) 126/71 (89) O2 Delivery Room Air Room Air Room Air Room Air 05/02/20 05/02/20 05/02/20 05/02/20 15:30 15:45 16:00 16:15 Pulse 79 75 81 75 Resp 20 20 20 20 B/P (MAP) 129/58 (81) 107/52 (70) 131/71 (91) 128/74 (92) O2 Delivery Room Air Room Air Room Air Room Air 05/02/20 05/02/20 05/02/20 05/02/20 16:30 16:45 17:00 17:15 Pulse 74 74 77 88 Resp 20 20 20 20 B/P (MAP) 142/68 (92) 137/66 (89) 136/77 (96) 141/79 (99) O2 Delivery Room Air Room Air Room Air Room Air 05/02/20 05/02/20 05/02/20 05/02/20 17:30 17:45 18:00 18:15 Temp 36.7 Pulse 76 80 80 76 Resp 20 20 20 20 B/P (MAP) 120/55 (76) 136/74 (94) 131/66 (87) 128/66 (86) O2 Delivery Room Air Room Air Room Air Room Air 05/02/20 05/02/20 05/02/20 05/02/20 18:30 19:00 19:15 19:30 Temp 37.3 Pulse 78 90 90 93 Resp 20 20 20 20 B/P (MAP) 124/61 (82) 145/71 (95) 143/73 (96) 130/67 (88) O2 Delivery Room Air Room Air Room Air Room Air 05/02/20 05/02/20 05/02/20 05/02/20 19:55 20:10 20:25 20:33 Pulse 92 86 99 94 Resp 20 20 20 20 B/P (MAP) 143/83 (103) 127/72 (90) 124/72 (89) 126/73 (90) Pulse Ox 100 100 100 O2 Delivery Room Air Room Air Room Air Room Air 05/02/20 05/02/20 05/02/20 05/02/20 20:36 20:45 20:48 20:53 Pulse 96 94 97 91 Resp 20 20 20 20 B/P (MAP) 110/61 (77) 116/53 (74) 116/55 (75) 108/53 (71) Pulse Ox 97 97 99 99 O2 Delivery Room Air Room Air Room Air Room Air 05/02/20 05/02/20 05/02/20 05/02/20 20:58 21:03 21:08 21:15 Pulse 97 89 94 85 Resp 20 20 20 20 B/P (MAP) 116/61 (79) 125/60 (81) 142/67 (92) 105/55 (72) Pulse Ox 99 99 99 99 O2 Delivery Room Air Room Air Room Air Room Air 05/02/20 05/02/20 05/02/20 05/02/20 21:20 21:25 21:30 21:35 Pulse 87 95 87 85 Resp 20 20 20 20 B/P (MAP) 112/58 (76) 127/55 (79) 120/58 (78) 112/56 (74) Pulse Ox 99 99 99 99 O2 Delivery Room Air Room Air Room Air Room Air 05/02/20 05/02/20 05/02/20 05/02/20 21:40 22:10 22:30 22:45 Pulse 81 81 89 89 Resp 20 20 20 20 B/P (MAP) 119/59 (79) 121/63 (82) 135/66 (89) 125/58 (80) Pulse Ox 99 99 99 99 O2 Delivery Room Air Room Air Room Air Room Air 05/02/20 05/02/20 05/02/20 05/02/20 23:00 23:15 23:30 23:45 Temp 37.6 Pulse 95 83 88 90 Resp 20 20 20 20 B/P (MAP) 118/59 (78) 134/60 (84) 122/58 (79) 118/59 (78) Pulse Ox 99 99 99 99 O2 Delivery Room Air Room Air Room Air Room Air 05/03/20 05/03/20 05/03/20 05/03/20 00:00 00:15 00:30 00:45 Pulse 83 90 93 87 Resp 20 20 20 20 B/P (MAP) 129/66 (87) 133/65 (87) 123/69 (87) 125/57 (79) Pulse Ox 99 O2 Delivery Room Air Room Air Room Air Room Air 05/03/20 05/03/20 05/03/20 01:00 01:15 01:30 Pulse 88 90 91 Resp 20 20 20 B/P (MAP) 128/69 (88) 134/70 (91) 138/63 (88) O2 Delivery Room Air Room Air Room Air Rupture of Membranes Spontaneous Ruture of Membrane: No Amniotic Membrane Rupture Time: 0854 Amniotic Membrane Fluid Desc.: Clear Vaginal Bleeding Description: Normal Show Induction/Anesthesia Epidural Cath Placement - Time: 2028 Progress/Notes Patient came in for 39 week induction. Misoprostol given overnight, AROM done 1/25 am followed by Pitocin augmentation to 20 mu max dose. She obtained epidural and progressed to complete and + 2 station. L&D Stage2 Stage Two Stage II Date: May 03, 2020 Monitors and Tracing Monitor Mode: Internal Heart Rate: 165 Monitor Accelerations: Uniform Monitor Decelerations: Variable Jail Variability: Average (6-10) Short Term Variability: Present Position: Right Occiput Anterior Presentation: Vertex Cord Descript/Complications Cord Vessel Description: 3 Vessels Delivery Type Infant Delivery Method: Spontaneous Vaginal Anterior Shoulder: Left Episiotomy/Perineal Laceration Laceraction(s)/Extensions: Yes Episiotomy Description: Vaginal Extension/lac, 1st degree (vaginal) Degree (describe repair) 1st degree vaginal laceration repaired using 3-0 rapide in usual fashion Condition of Delivery 1 minute Comment: 8 5 minute Comment: 9 Notes Live female weight 7lbs 13 oz Condition of Condition of : Living Exam: No Observed Abnormalities Resuscitation Resuscitation: N/A - Spontaneous Resp L&D Stage3 Stage Three Stage III Date: May 03, 2020 Pictocin Pitocin Administration mu/min: 20 Pitocin ml/hr: 20 Pitocin Administration Comment: Pitocin increased Placenta Delivery Placenta Delivery: Spontaneous Delivery Summary Summary Estimated blood loss (mL): 400 Attending at delivery: Alba Desai DO Condition of Delivery Examined: Cervix Examined, Uterus Explored Post Hemorrhage: No Condition of Mother stable Condition of Infant (s) stable ALBA DESAI DO May 03, 2020 03:21
[2020-05-03] MEDS ORDERED: ceFAZolin 2 GM IV Premixed 50 ML IV ONE (03:30)
--- NOTE | 2020-05-03 04:40 | NUR ---
ff 1 below, light rubra noted. pt has the urge to void. pt assisted to the bathroom. Positive void. pericare completed. pt ready to tx to pp room. pt assisted to w'c and taken down to 311. Pt orientated to room. Mother at bedside. Pt denies any needs at this time.
[2020-05-03] MEDS ORDERED: CATHETER FLUSH 10 ML SYR IV SCH (06:00)
[2020-05-03] MEDS ORDERED: MISOPROSTOL 200 MCG (CYTOTEC) TABLET PO ONE (07:00)
[2020-05-03] MEDS ORDERED: METHYLERGONOVINE 0.2 MG/ML (METHERGINE) AMP IM ONE (07:00)
[2020-05-03] MEDS: PRENATAL VITAMIN 1 EA TAB PO SCH (08:03)
[2020-05-03] MEDS: FERROUS SULF 325 MG (IRON) TAB PO SCH (08:03)
[2020-05-03] MEDS: IBUPROFEN 600 MG (MOTRIN) TAB PO SCH ×3 (08:04→19:52)
[2020-05-03] MEDS: DOCUSATE SODIUM 100 MG (COLACE) CAP PO SCH ×2 (08:04→19:52)
--- NOTE | 2020-05-03 08:10 | NUR ---
iv site covered for pt to get up in shower at this time.
--- NOTE | 2020-05-03 10:48 | NUR ---
CM/SS: Visited with RN in relation to Social Service Consult/Notifications related to support system in place. There are no current identified needs at this time. The social service consult/ notification was entered in error.
[2020-05-04] MEDS: IBUPROFEN 600 MG (MOTRIN) TAB PO SCH ×3 (02:17→14:20)
[2020-05-04 02:25] VITALS: BP 103/57
[2020-05-04 05:32] LABS: BASOPHILS % (AUTO) 0 % (0-10); EOSINOPHILS # (AUTO) 0.2 10^3/uL (0.0-0.3); EOSINOPHILS % (AUTO) 2 % (0-10); HEMATOCRIT 26 % (35-52); HEMOGLOBIN 8.2 g/dL (11.5-16.0); LYMPHOCYTES # (AUTO) 2.1 10^3/uL (1.0-4.0); LYMPHOCYTES % (AUTO) 15 % (12-44); MEAN CORPUSCULAR HEMOGLOBIN 29 pg (25-34); MEAN CORPUSCULAR HGB CONC 32 g/dL (32-36); MEAN CORPUSCULAR VOLUME 91 fL (80-99); MEAN PLATELET VOLUME 11.2 fL (9.0-12.2); MONOCYTES # (AUTO) 1.3 10^3/uL (0.0-1.0); MONOCYTES % (AUTO) 9 % (0-12); NEUTROPHILS # (AUTO) 10.6 10^3/uL (1.8-7.8); NEUTROPHILS % (AUTO) 73 % (42-75); PLATELET COUNT 158 10^3/uL (130-400); WHITE BLOOD COUNT 14.4 10^3/uL (4.3-11.0)
--- NOTE | 2020-05-04 07:21 | Anesthesia-Regional Post-Op ---
Regional Patient Condition Mental Status: Alert, Oriented x3 Circulation: Same as Pre-Op Headache: Absent Sensation: Full Recovery Motor Block: Absent Post Op Complications Complications None Follow Up Care/Instructions Patient Instructions None needed. Anesthesia/Patient Condition Patient is doing well, no complaints, stable vital signs, no apparent adverse anesthesia problems. No complications reported per nursing. ANTHONY HELTON CRNA May 04, 2020 07:21
[2020-05-04] MEDS ORDERED: DIBU30OI TOP (07:39)
[2020-05-04] MEDS ORDERED: BENZ78AE5 TP (07:39)
[2020-05-04] MEDS ORDERED: ACHD5005 PO (07:39)
[2020-05-04] MEDS ORDERED: FERR325T18 PO (07:39)
[2020-05-04] MEDS ORDERED: IBUP-844 PO (07:39)
[2020-05-04] MEDS ORDERED: DCS100C PO (07:39)
--- NOTE | 2020-05-04 07:44 | Discharge Inst-Women's Service ---
Discharge Inst-Women's Serv Depart Medication/Instructions New, Converted or Re-Newed RX: RX on Chart Final Diagnosis PPD 1 NVD Problems Reviewed?: Yes Consults/Follow Up Additional Follow Up: Yes Orders/Referrals Dr. Desai in 6 weeks Activity Activity: Activity as Tolerated Driving Instructions: No Driving for 1 Week NO SMOKING: NO SMOKING Nothing Inside Vagina: No Douching, No [place], No Tampons Diet Discharge Diet: No Restrictions Symptoms to Report to : Bleeding Excessive, Pain Increased, Fever Over 101 Degrees F, Vaginal Bleeding Increase, Questions/Concerns For Any Problems or Questions: Contact Your Physician ALBA DESAI DO May 04, 2020 07:44
--- NOTE | 2020-05-04 07:48 | Postpartum Progress Note ---
Note Note Day # 1 Subjective: Patient is without complaints. Ambulating, voiding. Tolerating a regular diet without nausea or vomiting. Normal lochia. Pain is well controlled with oral pain medications. Objective: Physical Exam: General - Alert and oriented, no apparent distress Abdomen - Soft, appropriately tender to palpation, non-distended, fundus firm at umbilicus Extremities - no edema, negative Scottie's bilaterally Assessment: PPD 1 NVD Acute blood loss anemia Plan: Routine care. Encourage breast feeding. Encourage ambulation. Ferrous sulfate supplementation. Plan for discharge today Vitals - Labs Vital Signs - I&O Vital Signs Date Time Temp Pulse Resp B/P (MAP) Pulse Ox O2 Delivery O2 Flow Rate FiO2 05/04/20 02:25 36.3 87 18 103/57 (72) 98 05/03/20 20:00 36.3 64 18 109/56 (73) 99 05/03/20 16:36 36.1 72 18 99/53 (68) 97 Room Air 05/03/20 11:30 36.9 77 16 115/56 (75) 99 Room Air Labs Laboratory Tests 05/04/20 05:12: White Blood Count 14.4H, Red Blood Count 2.80L, Hemoglobin 8.2#L, Hematocrit 26L , Mean Corpuscular Volume 91, Mean Corpuscular Hemoglobin 29, Mean Corpuscular Hemoglobin Concent 32, Red Cell Distribution Width 13.3, Platelet Count 158, Mean Platelet Volume 11.2, Immature Granulocyte % (Auto) 1, Neutrophils (%) (Auto) 73, Lymphocytes (%) (Auto) 15, Monocytes (%) (Auto) 9, Eosinophils (%) (Auto) 2, Basophils (%) (Auto) 0, Neutrophils # (Auto) 10.6H, Lymphocytes # (Auto) 2.1, Monocytes # (Auto) 1.3H, Eosinophils # (Auto) 0.2, Basophils # (Auto) 0.0, Immature Granulocyte # (Auto) 0.2H ALBA DESAI DO May 04, 2020 07:48
--- NOTE | 2020-05-04 08:26 | NUR ---
Dr Clay to see patient and review plan of care.
[2020-05-04 09:13] VITALS: BP 118/61
[2020-05-04] MEDS: DOCUSATE SODIUM 100 MG (COLACE) CAP PO SCH (09:16)
[2020-05-04] MEDS: PRENATAL VITAMIN 1 EA TAB PO SCH (09:16)
[2020-05-04] MEDS: FERROUS SULF 325 MG (IRON) TAB PO SCH (09:16)
[2020-05-04 14:16] VITALS: BP 108/62
--- NOTE | 2020-05-04 16:30 | NUR ---
prescriptions and food brought to pt bedside. Discharge instructions explained, signed and copy to patient. pt verbalized understanding of instructions and denied questions. pt discharged to boarder parent at this time.
== END 2020-05-04 16:30 | disposition home or self-care (01) | DRG 806 ==
LOC: LDRP 19:40
PROVIDERS: ADMIT Obstetrics & Gynecology; ATTEND Obstetrics & Gynecology
PROC: 3E0D7GC Introduction of Other Therapeutic Substance into Mouth and Pharynx, Via Natural or Artificial Opening (ICD-10-PCS; 2020-05-01)
PROC: 10E0XZZ Delivery of Products of Conception, External Approach (ICD-10-PCS; principal; 2020-05-03)
PROC: 0HQ9XZZ Repair Perineum Skin, External Approach (ICD-10-PCS; 2020-05-03)
DX: O70.0 First degree perineal laceration during delivery (principal); D62 Acute posthemorrhagic anemia; Z37.0 Single live birth; O90.81 Anemia of the puerperium; Z20.822 Contact with and (suspected) exposure to COVID-19; Z3A.39 39 weeks gestation of pregnancy
CPT/HCPCS: 36415; 85025; 86850; 86900; 86901; 87635

== ENCOUNTER → 2021-05-05 | Outpatient (CLI) | payer MEDICAID ==
[~2021-05-05] MED LIST changes: +ACHD5005 PO; +BENZ78AE5 TP; +DIBU30OI TOP; +DOCU-239 PO; +DOXY-311 PO; -DOXY100C42 PO; +FERR325T18 PO; +IBUP-844 PO
== END ==
LOC: LAB FS 10:56
PROVIDERS: ATTEND Obstetrics & Gynecology
DX: O20.0 Threatened abortion (principal)
CPT/HCPCS: 36415; 84702

== ENCOUNTER → 2021-05-08 | Outpatient (CLI) | payer MEDICAID | LOC: LAB FS 13:06 | PROVIDERS: ATTEND Obstetrics & Gynecology | DX: O20.0 Threatened abortion (principal); Z3A.00 Weeks of gestation of pregnancy not specified | CPT/HCPCS: 36415; 84702 ==

== ENCOUNTER → 2021-08-02 | Outpatient (CLI) | payer MEDICAID ==
[2021-08-02 16:20] LABS: BASOPHILS % (AUTO) 0 % (0-10); EOSINOPHILS # (AUTO) 0.2 10^3/uL (0.0-0.3); EOSINOPHILS % (AUTO) 2 % (0-10); HEMATOCRIT 35 % (35-52); LYMPHOCYTES # (AUTO) 2.1 10^3/uL (1.0-4.0); LYMPHOCYTES % (AUTO) 21 % (12-44); MEAN CORPUSCULAR HEMOGLOBIN 31 pg (25-34); MEAN CORPUSCULAR HGB CONC 34 g/dL (32-36); MEAN CORPUSCULAR VOLUME 91 fL (80-99); MEAN PLATELET VOLUME 11.1 fL (9.0-12.2); MONOCYTES # (AUTO) 0.7 10^3/uL (0.0-1.0); MONOCYTES % (AUTO) 8 % (0-12); NEUTROPHILS # (AUTO) 6.8 10^3/uL (1.8-7.8); NEUTROPHILS % (AUTO) 68 % (42-75); PLATELET COUNT 211 10^3/uL (130-400); WHITE BLOOD COUNT 9.9 10^3/uL (4.3-11.0)
[2021-08-02 21:44] LABS: HEPATITIS C ANTIBODY C Non-Reactive (Non-Reactive)
== END ==
LOC: LABNPT 16:05
PROVIDERS: ATTEND Nurse Practitioner Women's Health
DX: Z34.02 Encounter for supervision of normal first pregnancy, second trimester (principal); Z3A.00 Weeks of gestation of pregnancy not specified
CPT/HCPCS: 84443; 85025; 86703; 86762; 86780; 86803; 86850; 86900; 86901; 87340

== ENCOUNTER → 2021-08-17 | Outpatient (CLI) | payer MEDICAID ==
--- NOTE | 2021-08-17 13:46 | Diagnostic Imaging Report ---
INDICATION: Supervision of normal . Anatomy survey. TECHNIQUE: Multiple real-time grayscale images were obtained over the gravid uterus. COMPARISON: None FINDINGS: A single live intrauterine gestation is visualized in cephalic presentation. heart tones measure 147 bpm. The JF is normal measuring 11 cm. The placenta is posterior and not low lying. Cervical length measures 4.1 cm. The kidneys, bladder, stomach, brain, four-chamber heart, three-vessel cord, cord insertion, and spine are visualized and have a normal appearance. No abnormalities are identified on today's exam. The adnexa are unremarkable. Biometrical measurements are as follows: Biparietal 5.38 cm, age 22 weeks 3 days. Head circumference 20.41 cm, age 22 weeks 4 days. Abdominal circumference 18.63 cm, age 23 weeks 3 days. Femur length 3.82 cm, age 22 weeks 6 days. Sonographic estimate age: 22 weeks 5 days. Sonographic estimated date of delivery: 12/16/2021. Estimated Weight: 539 gm (+/- 79 gm). LMP percentile: 89%. heart rate: 147 beats per minute. number: 1 of 1. IMPRESSION: 1. Single live intrauterine gestation measuring 22 weeks 5 days with an estimated due date of 12/16/2021. These are within range of the clinical dates. Recommend continued follow-up. 2. Unremarkable anatomy survey without evidence of abnormality. Dictated by: Dictated on workstation # [id number]
== END ==
LOC: RAD FS 10:01
PROVIDERS: ATTEND Nurse Practitioner Women's Health
DX: Z34.02 Encounter for supervision of normal first pregnancy, second trimester (principal); Z3A.22 22 weeks gestation of pregnancy
CPT/HCPCS: 76805

== ENCOUNTER 2021-09-20 11:58 | Outpatient (CLI) | payer MEDICAID ==
[~2021-09-20] VITALS: Ht 172.7 cm; Wt 123.0 kg
[2021-09-20 12:32] LABS: BILIRUBIN,URINE NEGATIVE (NEGATIVE); CLARITY,URINE CLEAR; COLOR,URINE YELLOW; GLUCOSE, URINE (UA) NEGATIVE (NEGATIVE); KETONES,URINE NEGATIVE (NEGATIVE); LEUKOCYTE ESTERASE ,URINE NEGATIVE (NEGATIVE); NITRITE,URINE NEGATIVE (NEGATIVE); PROTEIN,URINE NEGATIVE (NEGATIVE)
[2021-09-20 12:34] VITALS: BP 115/57
[2021-09-20 12:41] LABS: BACTERIA,URINE FEW /HPF; CALCIUM OXALATE CRYSTALS,UR RARE /LPF; RBC,URINE RARE /HPF; WBC,URINE RARE /HPF
--- NOTE | 2021-09-21 08:23 | Physician Query-Final Dx ---
ART,09/21/21 0823: Clinic Account Progress/Dx Physician Query: Please give diagnosis Please include # weeks gestation Date of Service Sep 20, 2021 at 11:58 ALBA DESAI DO 09/21/21 0839: Clinic Account Progress/Dx DIAGNOSIS: Diagnosis 26 week IUP Fall in ART,AprSep 21, 2021 08:23 ALBA DESAI DO Sep 21, 2021 08:39
== END 2021-09-20 13:12 ==
LOC: WSo 11:58 → LDRP 11:58 → WSo 13:12
PROVIDERS: ATTEND Obstetrics & Gynecology
DX: O26.892 Other specified pregnancy related conditions, second trimester (principal); Z3A.26 26 weeks gestation of pregnancy
CPT/HCPCS: 81000; 87077; 87088; 87186; 99212

== ENCOUNTER → 2021-11-16 | Outpatient (CLI) | payer MEDICAID ==
--- NOTE | 2021-11-16 09:47 | Diagnostic Imaging Report ---
INDICATION: Evaluate growth. TECHNIQUE: Multiple real-time grayscale images were obtained over the gravid uterus. COMPARISON: 08/17/2021. FINDINGS: There is a single live fetus in a cephalic presentation. heart rate was recorded at 153 bpm. Placenta is posterior. Amniotic fluid index is 13.6 cm. Biophysical profile was performed with a normal score of 8 out of 8. Biometrical measurements are as follows: Biparietal 8.98 cm, age 36 weeks 3 days. Head circumference 33.53 cm, age 38 weeks 3 days. Abdominal circumference 32.57 cm, age 36 weeks 4 days. Femur length 7.17 cm, age 36 weeks 6 days. Sonographic estimate age: 37 weeks 1 days. Sonographic estimated date of delivery: 12/06/2021. Estimated Weight: 3018 gm (+/- 441 gm). LMP percentile: 92%. heart rate: 153 beats per minute. number: 1 of 1. IMPRESSION: Single live IUP approximately 37-38 weeks gestational age. Biophysical profile score is normal at 8 out of 8. Dictated by: Dictated on workstation # [id number]
== END ==
LOC: RAD FS 07:48
PROVIDERS: ATTEND Nurse Practitioner Women's Health
DX: O24.419 Gestational diabetes mellitus in pregnancy, unspecified control (principal); Z3A.00 Weeks of gestation of pregnancy not specified
CPT/HCPCS: 76805; 76819

== ENCOUNTER 2021-12-09 23:27 | Emergency (ER) | payer MEDICAID ==
[~2021-12-09] VITALS: Ht 172.7 cm; Wt 125.0 kg
[2021-12-10] MEDS ORDERED: ACETAMINOPHEN 500 MG TAB (TYLENOL) PO STA (00:19)
[2021-12-10] MEDS ORDERED: NS IV 1000 ML 1,000 ML IV SCH (00:30)
[2021-12-10 00:45] LABS: BILIRUBIN,URINE NEGATIVE (NEGATIVE); CLARITY,URINE CLEAR; COLOR,URINE YELLOW; GLUCOSE, URINE (UA) NEGATIVE (NEGATIVE); KETONES,URINE TRACE (NEGATIVE); LEUKOCYTE ESTERASE ,URINE NEGATIVE (NEGATIVE); NITRITE,URINE NEGATIVE (NEGATIVE); PROTEIN,URINE NEGATIVE (NEGATIVE)
[2021-12-10 00:45] LABS: BASOPHILS % (AUTO) 0 % (0-10); EOSINOPHILS % (AUTO) 0 % (0-10); HEMATOCRIT 32 % (35-52); HEMOGLOBIN 10.8 g/dL (11.5-16.0); LYMPHOCYTES # (AUTO) 0.3 10^3/uL (1.0-4.0); LYMPHOCYTES % (AUTO) 3 % (12-44); MEAN CORPUSCULAR HEMOGLOBIN 29 pg (25-34); MEAN CORPUSCULAR HGB CONC 33 g/dL (32-36); MEAN CORPUSCULAR VOLUME 86 fL (80-99); MONOCYTES # (AUTO) 0.9 10^3/uL (0.0-1.0); MONOCYTES % (AUTO) 9 % (0-12); NEUTROPHILS # (AUTO) 8.5 10^3/uL (1.8-7.8); NEUTROPHILS % (AUTO) 87 % (42-75); PLATELET COUNT 213 10^3/uL (130-400); WHITE BLOOD COUNT 9.7 10^3/uL (4.3-11.0)
[2021-12-10 00:55] LABS: BACTERIA,URINE TRACE /HPF; WBC,URINE 0-2 /HPF
[2021-12-10 01:11] LABS: ALBUMIN 3.2 GM/DL (3.2-4.5)
[2021-12-10 01:12] LABS: POTASSIUM 3.5 MMOL/L (3.6-5.0)
[2021-12-10 01:13] LABS: CALCIUM 9.1 MG/DL (8.5-10.1)
[2021-12-10 01:14] LABS: TOTAL PROTEIN 6.6 GM/DL (6.4-8.2)
[2021-12-10] MEDS ORDERED: LACTATED RINGERS 1,000 ML IV ONE (01:15)
[2021-12-10 01:16] LABS: BILIRUBIN,TOTAL 0.7 MG/DL (0.1-1.0)
[2021-12-10 01:18] LABS: CREATININE SERUM 0.61 MG/DL (0.60-1.30)
[2021-12-10 01:21] LABS: MAGNESIUM 1.4 MG/DL (1.6-2.4)
[2021-12-10 01:23] LABS: BAND NEUTROPHILS 4 %; LYMPHOCYTES % (MANUAL) 4 %; MONOCYTES % (MANUAL) 5 %; NEUTROPHILS % (MANUAL) 86 %; RBC MORPH NORMAL
[2021-12-10 01:25] LABS: ERYTHROCYTE SEDIMENTATION RATE 44 MM/HR (0-20)
[2021-12-10] MEDS ORDERED: MAGNESIUM OXIDE (MAG-OX)400 MG TAB PO ONE (01:30)
--- NOTE | 2021-12-10 02:08 | ED Cough/URI ---
General Chief Complaint: COVID19 Suspect/Confirmed Stated Complaint: COVID+,SOA,COUGH,HEADACHE,38 WKS Nursing Triage Note: pt states she has been feeling sick for 3 days, had positive home covid test today, is 38 wks Allergies and Home Medications Allergies Coded Allergies: No Known Drug Allergies (Unverified , 08/25/17) Patient Home Medication List Albuterol Sulfate (Proair Hfa) 1 Puff Puff, 2 PUFF IH Q4H PRN for WHEEZING Prescribed by: XAVIER JULES on 10/22/19 1534 Vit No.124/Iron/FA ( Vitamin Tablet) 1 Each Tablet, 1 EACH PO DAILY, (Reported) Entered as Reported by: JIE PABON on 03/04/20 030 Sertraline HCl (Zoloft) 25 Mg Tablet, 25 MG PO DAILY, (Reported) Entered as Reported by: JIE PABON on 03/04/20 030 Past Lxdsqki-Clztlu-Xiegfx Hx Immunizations Up To Date PED Vaccines UTD: Yes Seasonal Allergies Seasonal Allergies: No Past Medical History Surgeries: No Respiratory: Yes Asthma Cardiac: No Neurological: No Reproductive Disorders: No Genitourinary: No Gastrointestinal: No Musculoskeletal: No Endocrine: No HEENT: No Cancer: No Psychosocial: Yes Anxiety, Depression Integumentary: No Blood Disorders: No Family Medical History No Pertinent Family Hx Physical Exam Vital Signs - First Documented 12/10/21 00:02 Temp 37.3 Pulse 124 Resp 20 B/P (MAP) 112/80 (91) Pulse Ox 98 Capillary Refill : Less Than 3 Seconds Height: 5'8.00" Weight: 250lbs. oz. [id number]; 41.00 BMI Method:Stated Focused Exam Lactate Level 12/10/21 00:12: Lactic Acid Level 1.06 Lactic Acid Level Laboratory Tests Test 12/10/21 00:12 Lactic Acid Level 1.06 MMOL/L (0.50-2.00) Progress/Results/Core Measures Suspected Sepsis SIRS Temperature: Pulse: 124 Respiratory Rate: 20 Laboratory Tests 12/10/21 00:12: White Blood Count 9.7 Blood Pressure 112 /80 Mean: 91 12/10/21 00:12: Lactic Acid Level 1.06 Laboratory Tests 12/10/21 00:12: Creatinine 0.61, Platelet Count 213, Total Bilirubin 0.7 Results/Orders Lab Results Laboratory Tests Test 12/10/21 00:12 12/10/21 00:34 Range/Units White Blood Count 9.7 4.3-11.0 10^3/uL Red Blood Count 3.76 L 3.80-5.11 10^6/uL Hemoglobin 10.8 L 11.5-16.0 g/dL Hematocrit 32 L 35-52 % Mean Corpuscular Volume 86 80-99 fL Mean Corpuscular Hemoglobin 29 25-34 pg Mean Corpuscular Hemoglobin Concent 33 32-36 g/dL Red Cell Distribution Width 13.3 10.0-14.5 % Platelet Count 213 130-400 10^3/uL Mean Platelet Volume 11.0 9.0-12.2 fL Immature Granulocyte % (Auto) 1 % Neutrophils (%) (Auto) 87 H 42-75 % Lymphocytes (%) (Auto) 3 L 12-44 % Monocytes (%) (Auto) 9 0-12 % Eosinophils (%) (Auto) 0 0-10 % Basophils (%) (Auto) 0 0-10 % Neutrophils # (Auto) 8.5 H 1.8-7.8 10^3/uL Lymphocytes # (Auto) 0.3 L 1.0-4.0 10^3/uL Monocytes # (Auto) 0.9 0.0-1.0 10^3/uL Eosinophils # (Auto) 0.0 0.0-0.3 10^3/uL Basophils # (Auto) 0.0 0.0-0.1 10^3/uL Immature Granulocyte # (Auto) 0.1 0.0-0.1 10^3/uL Neutrophils % (Manual) 86 % Lymphocytes % (Manual) 4 % Monocytes % (Manual) 5 % Band Neutrophils 4 % Blood Morphology Comment NORMAL Erythrocyte Sedimentation Rate 44 H 0-20 MM/HR Sodium Level 133 L 135-145 MMOL/L Potassium Level 3.5 L 3.6-5.0 MMOL/L Chloride Level 103 98-107 MMOL/L Carbon Dioxide Level 17 L 21-32 MMOL/L Anion Gap 13 5-14 MMOL/L Blood Urea Nitrogen 5 L 7-18 MG/DL Creatinine 0.61 0.60-1.30 MG/DL Estimat Glomerular Filtration Rate 129 BUN/Creatinine Ratio 8 Glucose Level 78 70-105 MG/DL Lactic Acid Level 1.06 0.50-2.00 MMOL/L Calcium Level 9.1 8.5-10.1 MG/DL Corrected Calcium 9.7 8.5-10.1 MG/DL Magnesium Level 1.4 L 1.6-2.4 MG/DL Total Bilirubin 0.7 0.1-1.0 MG/DL Aspartate Amino Transf (AST/SGOT) 25 5-34 U/L Alanine Aminotransferase (ALT/SGPT) 21 0-55 U/L Alkaline Phosphatase 143 H 40-136 U/L C-Reactive Protein High Sensitivity 1.18 H 0.00-0.50 MG/DL B-Type Natriuretic Peptide < 10.0 <100.0 PG/ML Total Protein 6.6 6.4-8.2 GM/DL Albumin 3.2 3.2-4.5 GM/DL Procalcitonin 0.06 <0.10 NG/ML Influenza Type A (RT-PCR) Not Detected Not Detecte Influenza Type B (RT-PCR) Not Detected Not Detecte SARS-CoV-2 RNA (RT-PCR) Detected H Not Detecte Urine Color YELLOW Urine Clarity CLEAR Urine pH 6.0 5-9 Urine Specific [place] <=1.005 1.016-1.022 Urine Protein NEGATIVE NEGATIVE Urine Glucose (UA) NEGATIVE NEGATIVE Urine Ketones TRACE H NEGATIVE Urine Nitrite NEGATIVE NEGATIVE Urine Bilirubin NEGATIVE NEGATIVE Urine Urobilinogen 0.2 < = 1.0 MG/DL Urine Leukocyte Esterase NEGATIVE NEGATIVE Urine RBC (Auto) NEGATIVE NEGATIVE Urine RBC NONE /HPF Urine WBC 0-2 /HPF Urine Squamous Epithelial Cells 2-5 /HPF Urine Crystals NONE /LPF Urine Bacteria TRACE /HPF Urine Casts NONE /LPF Urine Mucus NEGATIVE /LPF Urine Culture Indicated NO My Orders Orders - ROLANDO MCMAHON DO Ed Iv/Invasive Line Start (12/10/21 00:19) Monitor-Rhythm Ecg Trace Only (12/10/21 00:19) Bnp Saeed (12/10/21:19) Cbc With Automated Diff (12/10/21 00:19) Comprehensive Metabolic Panel (12/10/21 00:19) Hs C Reactive Protein (12/10/21 00:19) Lactic Acid Analyzer (12/10/21 00:19) Magnesium (12/10/21:19) Protime With Inr (9/4/22 00:19) Partial Thromboplastin Time (12/10/21 00:19) Blood Culture (12/10/21 00:19) Erythrocyte Sedimentation Rate (12/10/21:19) Chest 1 View, Ap/Pa Only (12/10/21 00:19) Ed Iv/Invasive Line Start (12/10/21 00:19) Ns Iv 1000 Ml (Sodium Chloride 0.9%) (12/10/21 00:30) Acetaminophen Tablet (Tylenol Tablet) (12/10/21 00:19) Procalcitonin (Pct) (12/10/21 00:19) Covid 19 Inhouse Test (12/10/21:19) Sputum Culture (12/10/21:19) Urinalysis (12/10/21:19) Urine Culture (12/10/21:19) Ed Iv/Invasive Line Start (12/10/21 00:19) Ed Iv/Invasive Line Start (12/10/21 00:19) Vital Signs Adult Sepsis Patie Q15M (12/10/21 00:19) O2 (12/10/21 00:19) Remove Rings In Anticipation O (12/10/21 00:19) Influenza A And B By Pcr (12/10/21:19) Isolation Central Supply Req (12/10/21 00:19) Manual Differential (12/10/21 00:12) Ed Iv/Invasive Line Start (12/10/21 01:15) Lactated Ringers (Lr 1000 Ml Iv Solution (12/10/21 01:15) Magnesium Oxide Tablet (Mag Ox Tablet) (12/10/21 01:30) Medications Given in ED Current Medications Medications Dose Ordered Sig/Nafisa Route Start Time Stop Time Status Last Admin Dose Admin Lactated Ringer's 1,000 ml @ 0 mls/hr Q0M ONCE IV 12/10/21 01:15 12/10/21 01:16 DC 12/10/21 01:20 0 MLS/HR Magnesium Oxide 800 mg ONCE ONCE PO 12/10/21 01:30 12/10/21 01:31 DC 12/10/21 01:48 800 MG Vital Signs/I&O 12/10/21 00:02 Temp 37.3 Pulse 124 Resp 20 B/P (MAP) 112/80 (91) Pulse Ox 98 Capillary Refill : Less Than 3 Seconds Blood Pressure Mean: 91 Departure Impression Primary Impression: COVID-19 affecting in third trimester Additional Impression: Hypomagnesemia Disposition: 01 HOME, SELF-CARE Condition: Improved Departure-Patient Inst. Decision time for Depature: 02:07 Referrals: TEGAN PAYTON MD (PCP) Primary Care Physician ALBA DESAI DO (Family) Primary Care Physician Patient Instructions: COVID-19 and Add. Discharge Instructions: INCREASE YOUR FLUID INTAKE TYLENOL NEEDED FOR PAIN OR FEVER OVER THE COUNTER MEDICATIONS FOR COUGH, RECOMMENDED BY YOUR OB PHYSICIAN QUARANTINE FOR 10 DAYS FOLLOW UP WITH DR. DESAI ON SATURDAY RETURN TO ER IF SYMPTOMS WORSEN All discharge instructions reviewed with patient and/or family. Voiced understanding. ROLANDO MCMAHON DO Dec 10, 2021 02:08
[2021-12-10 02:27] VITALS: BP 131/65
--- NOTE | 2021-12-10 07:08 | Diagnostic Imaging Report ---
EXAMINATION: Chest 1 view HISTORY: COVID, dyspnea COMPARISON: 03/26/2019 FINDINGS: Heart size and pulmonary vasculature are normal. There are patchy interstitial opacities within the lower lungs. No pleural effusion or pneumothorax. There are low lung volumes. The osseous structures are intact. IMPRESSION: 1. Low lung volumes with interstitial opacities in the lung bases. Findings compatible with atelectasis or pneumonia given history of COVID 19. Dictated by: Dictated on workstation # [id number]
== END 2021-12-10 02:32 | disposition home or self-care (01) ==
LOC: EDUNIT# 23:27 → ER 23:29
DX: O98.513 Other viral diseases complicating pregnancy, third trimester (principal); U07.1 COVID-19; O99.283 Endocrine, nutritional and metabolic diseases complicating pregnancy, third trimester; E83.42 Hypomagnesemia; Z3A.38 38 weeks gestation of pregnancy
CPT/HCPCS: 36415; 71045; 80053; 81000; 83605; 83735; 83880; 84145; 85007; 85027; 85652; 86141; 87040; 87088; 87636; 93041

== ENCOUNTER 2021-12-17 19:00 | Inpatient (IN) | payer MEDICAID ==
[~2021-12-17] VITALS: Ht 172 cm; Wt 131.2 kg
[2021-12-17] MEDS ORDERED: AMPICILLIN FOR IV USE 2,000 MG in NS (IVPB) 50 ML IV SCH (19:46)
[2021-12-17 20:00] VITALS: BP 142/83
[2021-12-17] MEDS ORDERED: MINERAL OIL 30 ML UDC TOP PRN (20:00)
[2021-12-17] MEDS ORDERED: NS (IVPB) 250 ML IV ONE (20:00)
[2021-12-17] MEDS ORDERED: LACTATED RINGERS 1,000 ML IV ONE (20:11)
[2021-12-17] MEDS ORDERED: NS IV 500 ML 500 ML ONE (20:11)
[2021-12-17 20:14] LABS: BILIRUBIN,URINE NEGATIVE (NEGATIVE); CLARITY,URINE SL CLOUDY; COLOR,URINE ORANGE; GLUCOSE, URINE (UA) NEGATIVE (NEGATIVE); KETONES,URINE TRACE (NEGATIVE); LEUKOCYTE ESTERASE ,URINE NEGATIVE (NEGATIVE); NITRITE,URINE NEGATIVE (NEGATIVE); PH,URINE 6.5 (5-9); PROTEIN,URINE 1+ (NEGATIVE)
[2021-12-17 20:15] LABS: BASOPHILS % (AUTO) 0 % (0-10); EOSINOPHILS # (AUTO) 0.1 10^3/uL (0.0-0.3); EOSINOPHILS % (AUTO) 1 % (0-10); HEMATOCRIT 32 % (35-52); HEMOGLOBIN 10.8 g/dL (11.5-16.0); LYMPHOCYTES # (AUTO) 1.6 10^3/uL (1.0-4.0); LYMPHOCYTES % (AUTO) 16 % (12-44); MEAN CORPUSCULAR HEMOGLOBIN 29 pg (25-34); MEAN CORPUSCULAR HGB CONC 34 g/dL (32-36); MEAN CORPUSCULAR VOLUME 85 fL (80-99); MEAN PLATELET VOLUME 11.4 fL (9.0-12.2); MONOCYTES # (AUTO) 0.6 10^3/uL (0.0-1.0); MONOCYTES % (AUTO) 6 % (0-12); NEUTROPHILS # (AUTO) 7.5 10^3/uL (1.8-7.8); NEUTROPHILS % (AUTO) 77 % (42-75); PLATELET COUNT 252 10^3/uL (130-400); WHITE BLOOD COUNT 9.8 10^3/uL (4.3-11.0)
[2021-12-17] MEDS: LACTATED RINGERS 1,000 ML IV SCH (20:17)
[2021-12-17] MEDS ORDERED: WATER (STERILE) FOR INJECTION 20 ML ONE (20:40)
[2021-12-17] MEDS ORDERED: AMPICILLIN 2,000 MG/14.8 ML (IV USE) ONE (20:40)
[2021-12-17 20:41] LABS: BACTERIA,URINE TRACE /HPF; WBC,URINE 0-2 /HPF
[2021-12-17 21:14] VITALS: BP 133/82
[2021-12-17] MEDS ORDERED: CATHETER FLUSH 10 ML SYR IV SCH (22:00)
[2021-12-17 22:42] VITALS: BP 134/80
[2021-12-17 23:05] VITALS: BP 147/84
[2021-12-18] VITALS (64 sets, daily range): BP systolic 111–173; BP diastolic 63–99
[2021-12-18] MEDS: AMPICILLIN FOR IV USE 1,000 MG in NS (IVPB) 50 ML IV SCH ×4 (01:04→15:18)
[2021-12-18] MEDS: LACTATED RINGERS 1,000 ML IV SCH ×2 (04:46→12:47)
--- NOTE | 2021-12-18 06:19 | History & Physical-OB ---
CAROLA TRAN 12/18/21 0619: OB - Chief Complaint & HPI Date/Time Date of Admission: Date of Admission: Dec 17, 2021 at 19:19 Date seen by a Provider: Dec 18, 2021 Time Seen by a Provider: 06:15 Chief Complaint/History OB-Reason for Admission/Chief: Induction of Labor Hx : 2 Hx Para: 1 Expected Date of Delivery: Dec 22, 2021 Gestational Age in Weeks: 39 Gestational Age in Days: 2 Indication for induction: post dates History of Labs GBS + RPR neg Hep B - Rubella unknown Gestational diabetes Allergies and Home Medications Allergies Coded Allergies: No Known Drug Allergies (Unverified , 08/25/17) Patient Home Medication List Home Medication List Reviewed: Yes Albuterol Sulfate (Proair Hfa) 1 Puff Puff, 2 PUFF IH Q4H PRN for WHEEZING Prescribed by: XAVIER JULES on 10/22/19 1534 Vit No.124/Iron/FA ( Vitamin Tablet) 1 Each Tablet, 1 EACH PO DAILY, (Reported) Entered as Reported by: JIE PABON on 03/04/20 030 Sertraline HCl (Zoloft) 25 Mg Tablet, 25 MG PO DAILY, (Reported) Entered as Reported by: JIE PABON on 03/04/20303 OB - History Hx of Present Care: Yes Ultrasounds: Normal mid trimester US Obstetrical Complications: Gestational Diabetes Medical Complications: None Other Concerns: Bleeding post delivery #1 Obstetrical History Hx : 2 Hx Para: 1 Patient Past Medical History n/a Social History/Family History 2nd Hand Smoke Exposure: No Immunizations Influenza Vaccine Up-to-Date: No; Not Current Rubella: unknown RPR/VDRL: Negative GBS Status: Positive HBsAG: Negative OB - Admission Exam Physical Exam Vitals: Vital Signs 12/17/21 12/18/21 12/18/21 20:00 03:55 05:05 Temp 36.6 Pulse 65 Resp 18 B/P (MAP) 145/84 (104) Pulse Ox 98 O2 Delivery Room Air HEENT: NCAT Heart: Rhythm Normal Lungs: Clear Abdomen: Gravid Extremities: Normal Cervical Dilatation: 2cm (@ 0300) Labs Laboratory Tests Test 12/17/21 20:04 Range/Units White Blood Count 9.8 4.3-11.0 10^3/uL Red Blood Count 3.79 L 3.80-5.11 10^6/uL Hemoglobin 10.8 L 11.5-16.0 g/dL Hematocrit 32 L 35-52 % Mean Corpuscular Volume 85 80-99 fL Mean Corpuscular Hemoglobin 29 25-34 pg Mean Corpuscular Hemoglobin Concent 34 32-36 g/dL Red Cell Distribution Width 13.2 10.0-14.5 % Platelet Count 252 130-400 10^3/uL Mean Platelet Volume 11.4 9.0-12.2 fL Immature Granulocyte % (Auto) 1 % Neutrophils (%) (Auto) 77 H 42-75 % Lymphocytes (%) (Auto) 16 12-44 % Monocytes (%) (Auto) 6 0-12 % Eosinophils (%) (Auto) 1 0-10 % Basophils (%) (Auto) 0 0-10 % Neutrophils # (Auto) 7.5 1.8-7.8 10^3/uL Lymphocytes # (Auto) 1.6 1.0-4.0 10^3/uL Monocytes # (Auto) 0.6 0.0-1.0 10^3/uL Eosinophils # (Auto) 0.1 0.0-0.3 10^3/uL Basophils # (Auto) 0.0 0.0-0.1 10^3/uL Immature Granulocyte # (Auto) 0.1 0.0-0.1 10^3/uL Urine Color ORANGE Urine Clarity SL CLOUDY Urine pH 6.5 5-9 Urine Specific [place] 1.025 H 1.016-1.022 Urine Protein 1+ H NEGATIVE Urine Glucose (UA) NEGATIVE NEGATIVE Urine Ketones TRACE H NEGATIVE Urine Nitrite NEGATIVE NEGATIVE Urine Bilirubin NEGATIVE NEGATIVE Urine Urobilinogen 1.0 < = 1.0 MG/DL Urine Leukocyte Esterase NEGATIVE NEGATIVE Urine RBC (Auto) NEGATIVE NEGATIVE Urine RBC NONE /HPF Urine WBC 0-2 /HPF Urine Squamous Epithelial Cells 2-5 /HPF Urine Crystals NONE /LPF Urine Bacteria TRACE /HPF Urine Casts NONE /LPF Urine Mucus SMALL H /LPF Urine Culture Indicated NO Glucose Level 104 70-105 MG/DL OB - Assessment/Plan/Diagnosis Assessment Assessment: group B positive strep, induction of labor Admission Dx @ 39-3 induction of labor Admission Status: Inpatient Order (span 2 midnights) Reason for Inpatient Admission: @ 39-3 induction of labor Plan Plan: Induction Induction Method: per Misoprostol Protocol YOUISF CLAY DO 12/18/21 0704: Allergies and Home Medications Allergies Coded Allergies: No Known Drug Allergies (Unverified , 08/25/17) Patient Home Medication List Albuterol Sulfate (Proair Hfa) 1 Puff Puff, 2 PUFF IH Q4H PRN for WHEEZING Prescribed by: XAVIER JULES on 10/22/19 1534 Vit No.124/Iron/FA ( Vitamin Tablet) 1 Each Tablet, 1 EACH PO DAILY, (Reported) Entered as Reported by: JIE PABON on 03/04/20 030 Sertraline HCl (Zoloft) 25 Mg Tablet, 25 MG PO DAILY, (Reported) Entered as Reported by: JIE PABON on 03/04/20 0304 OB - Assessment/Plan/Diagnosis Plan Other Plan Diagnosis: GDMA2 IOL at 39 weeks GBS pos P: Misoprostol overnight AROM and Pitocin this AM. Verification and Attestation of Medical Student E/M Service A medical student performed and documented this service in my presence. I re viewed and verified all information documented by the medical student and made modifications to such information, when appropriate. I personally performed the physical exam and medical decision making. Yousif Clay, Dec 18, 2021,07:04 CAROLA TRAN Dec 18, 2021 06:19 YOUSIF CLAY DO Dec 18, 2021 07:04
[2021-12-18] MEDS ORDERED: fentaNYL 2 mcg/ml BUPIVA 0.125 100 ML ONE (08:04)
[2021-12-18] MEDS ORDERED: fentaNYL INJ 100 MCG/2 ML AMP ONE (08:19)
[2021-12-18] MEDS ORDERED: BUPIVACAINE 0.25% 10 ML (SENSORCAINE) VIAL ONE (08:19)
[2021-12-18] MEDS ORDERED: LACTATED RINGERS 1,000 ML IV ONE (09:00)
[2021-12-18] MEDS ORDERED: NALOXONE 0.4 MG/ML 1 ML (NARCAN) VIAL IV PRN ×2 (09:00→16:45)
[2021-12-18] MEDS ORDERED: CATHETER FLUSH 10 ML SYR IV PRN (09:00)
[2021-12-18] MEDS: fentaNYL 2 mcg/ml BUPIVA 0.125 100 ML IV SCH ×2 (10:21→15:55)
[2021-12-18] MEDS ORDERED: OXYTOCIN PRE-MIX DRIP 500 ML IV SCH ×3 (10:30→16:45)
--- NOTE | 2021-12-18 16:44 | OB Labor & Delivery Record ---
L&D History Date of Service Date of Service: Dec 18, 2021 History Expected Date of Delivery: Dec 22, 2021 Gestational Age in Weeks: 39 Hx : 2 Hx Para: 1 Complications Events: Gestational Diabetes, Routine care Operative Indications (Cesarea: N/A-Vaginal Delivery Intrapartal Events: None L&D Stage1 Stage One Onset of Labor - Date: Dec 18, 2021 Monitors and Tracing Monitor Mode: External Heart Rate: 125 Station: -2 Goring Cutter Variability: Average (6-10) Short Term Variability: Present Presentation: Vertex Vital Signs VS - Last 72 Hours, by Label 12/17/21 12/17/21 12/17/21 12/17/21 20:00 21:14 22:42 23:05 Temp 36.4 Pulse 82 72 75 62 Resp 18 18 18 18 B/P (MAP) 133/82 (99) 134/80 (98) 147/84 (105) Pulse Ox 98 O2 Delivery Room Air Room Air Room Air Room Air 12/18/21 12/18/21 12/18/21 12/18/21 01:05 02:05 03:05 03:55 Temp 36.6 Pulse 66 61 66 Resp 18 18 18 B/P (MAP) 135/78 (97) 138/81 (100) 137/80 (99) O2 Delivery Room Air Room Air Room Air 12/18/21 12/18/21 12/18/21 12/18/21 04:16 05:05 06:15 07:05 Pulse 61 65 71 64 Resp 18 18 18 18 B/P (MAP) 147/84 (105) 145/84 (104) 141/79 (99) 138/86 (103) O2 Delivery Room Air Room Air Room Air Room Air 12/18/21 12/18/21 12/18/21 12/18/21 07:55 08:10 08:25 08:34 Temp 36.5 Pulse 66 78 73 79 Resp 18 20 20 20 B/P (MAP) 134/85 (101) 133/82 (99) 134/84 (101) 152/72 (98) Pulse Ox 99 O2 Delivery Room Air Room Air Room Air Room Air 12/18/21 12/18/21 12/18/21 12/18/21 08:38 08:42 08:45 08:48 Pulse 76 79 87 82 Resp 20 20 20 20 B/P (MAP) 145/73 (97) 143/75 (97) 140/78 (98) 135/70 (91) Pulse Ox 98 98 99 99 O2 Delivery Room Air Room Air Room Air Room Air 12/18/21 12/18/21 12/18/21 12/18/21 08:52 08:57 09:00 09:05 Pulse 85 76 79 87 Resp 20 20 20 20 B/P (MAP) 141/73 (95) 138/75 (96) 142/77 (98) 136/73 (94) Pulse Ox 98 99 99 98 O2 Delivery Room Air Room Air Room Air Room Air 12/18/21 12/18/21 12/18/21 12/18/21 09:09 09:13 09:17 09:20 Pulse 77 81 78 78 Resp 18 18 18 18 B/P (MAP) 144/73 (96) 147/68 (94) 146/66 (92) 146/67 (93) Pulse Ox 98 97 97 97 O2 Delivery Room Air Room Air Room Air Room Air 12/18/21 12/18/21 12/18/21 12/18/21 09:24 09:28 09:33 09:37 Pulse 82 81 84 88 Resp 18 18 18 18 B/P (MAP) 132/72 (92) 130/73 (92) 134/73 (93) 141/78 (99) Pulse Ox 97 97 98 97 O2 Delivery Room Air Room Air Room Air Room Air 12/18/21 12/18/21 12/18/21 12/18/21 09:40 09:44 09:50 10:05 Pulse 80 85 83 76 Resp 18 18 18 18 B/P (MAP) 131/74 (93) 111/78 (89) 120/87 (98) 122/75 (91) Pulse Ox 97 97 98 97 O2 Delivery Room Air Room Air Room Air Room Air 12/18/21 12/18/21 12/18/21 12/18/21 10:20 10:35 10:50 11:05 Temp 37.0 37.2 Pulse 76 73 81 73 Resp 18 18 18 18 B/P (MAP) 132/67 (88) 123/68 (86) 122/68 (86) 132/74 (93) Pulse Ox 98 96 96 97 O2 Delivery Room Air Room Air Room Air Room Air 12/18/21 12/18/21 12/18/21 12/18/21 11:20 11:35 11:50 12:05 Temp 37.2 Pulse 74 67 70 68 Resp 18 18 18 18 B/P (MAP) 133/79 (97) 135/77 (96) 131/74 (93) 131/76 (94) Pulse Ox 98 97 97 96 O2 Delivery Room Air Room Air Room Air Room Air 12/18/21 12/18/21 12/18/21 12/18/21 12:20 12:35 12:50 13:05 Temp 36.7 Pulse 67 67 63 73 Resp 18 18 18 18 B/P (MAP) 137/80 (99) 134/79 (97) 130/71 (90) 120/72 (88) Pulse Ox 98 98 98 97 O2 Delivery Room Air Room Air Room Air Room Air 12/18/21 12/18/21 12/18/21 12/18/21 13:20 13:35 13:50 14:05 Pulse 73 73 71 72 Resp 18 18 18 18 B/P (MAP) 133/65 (87) 130/68 (88) 127/66 (86) 125/67 (86) Pulse Ox 98 98 98 98 O2 Delivery Room Air Room Air Room Air Room Air 12/18/21 12/18/21 12/18/21 12/18/21 14:20 14:35 14:50 15:05 Pulse 68 78 71 66 Resp 18 18 18 18 B/P (MAP) 138/65 (89) 140/87 (104) 141/87 (105) 146/94 (111) Pulse Ox 99 98 98 97 O2 Delivery Room Air Room Air Room Air Room Air 12/18/21 15:20 Pulse 67 Resp 18 B/P (MAP) 162/87 (112) Pulse Ox 98 O2 Delivery Room Air Rupture of Membranes Spontaneous Ruture of Membrane: No Amniotic Membrane Rupture Time: 0718 Amniotic Membrane Fluid Desc.: Clear Vaginal Bleeding Description: Normal Show Induction/Anesthesia Epidural Cath Placement - Time: 0840 Progress/Notes Patient admitted for IOL due to 39 weeks GDMA2. She was given misoprostol overnight PO, followed by AROM and Pitocin this AM. Ampicillin was started last night for GBS prophylaxis. She received an epidural and progressed to complete and + 2 station. L&D Stage2 Stage Two Stage II Date: Dec 18, 2021 Monitors and Tracing Monitor Mode: External Heart Rate: 125 Monitor Accelerations: Uniform Monitor Decelerations: Variable Custodial Variability: Average (6-10) Short Term Variability: Present Position: Right Occiput Anterior Presentation: Vertex Cord Descript/Complications Cord Vessel Description: 3 Vessels Complications nuchal cord reduced x 1 Delivery Type Delivery Method: Spontaneous Vaginal Anterior Shoulder: Left Episiotomy/Perineal Laceration Laceraction(s)/Extensions: No Condition of Delivery 1 minute Comment: 8 5 minute Comment: 8 Notes Live female infant weight 9lbs 1 oz. Condition of Condition of : Living Exam: No Observed Abnormalities Resuscitation Resuscitation: N/A - Spontaneous Resp L&D Stage3 Stage Three Stage III Date: Dec 18, 2021 Pictocin Pitocin Administration mu/min: 4 Pitocin ml/hr: 4 Pitocin Administration Comment: 30 mu wide open after delivery of placenta Placenta Delivery Placenta Delivery: Spontaneous Delivery Summary Summary Estimated blood loss (mL): 400 Attending at delivery: Alba Desai DO Condition of Delivery Examined: Cervix Examined, Uterus Explored Post Hemorrhage: No Condition of Mother stable Condition of Infant (s) stable ALBA DESAI DO Dec 18, 2021 16:44
[2021-12-18] MEDS ORDERED: DIBUCAINE 1% OINTMENT 30 GM TUBE TOP PRN (16:45)
[2021-12-18] MEDS ORDERED: BENZOCAINE/MENTHOL (DERMOPLAST) 56 ML CAN TP PRN (16:45)
[2021-12-18] MEDS ORDERED: WITCH HAZEL(TUCKS) 40 EA JAR TOP PRN (16:45)
[2021-12-18] MEDS ORDERED: TETANUS,DIPTH,PERTUSS P/F (BOOSTRIX) 0.5 ML VIAL IM ONE (16:45)
[2021-12-18] MEDS ORDERED: MEASLES,MUMPS,RUBELLA 1 EA INJ SQ ONE (16:45)
[2021-12-18] MEDS: IBUPROFEN 600 MG (MOTRIN) TAB PO SCH ×2 (17:08→23:41)
[2021-12-18] MEDS ORDERED: CATHETER FLUSH 10 ML SYR IV SCH (22:00)
[2021-12-18] MEDS: DOCUSATE SODIUM 100 MG (COLACE) CAP PO SCH (23:41)
[2021-12-19] VITALS: BP 136/80
[2021-12-19 03:30] VITALS: BP 131/81
[2021-12-19] MEDS ORDERED: ACETAMINOPHEN 500 MG TAB (TYLENOL) ONE (03:31)
[2021-12-19] MEDS: ACETAMINOPHEN 500 MG TAB (TYLENOL) PO PRN ×2 (03:32→12:45)
[2021-12-19 05:51] LABS: BASOPHILS % (AUTO) 0 % (0-10); EOSINOPHILS # (AUTO) 0.1 10^3/uL (0.0-0.3); EOSINOPHILS % (AUTO) 2 % (0-10); HEMATOCRIT 27 % (35-52); HEMOGLOBIN 9.2 g/dL (11.5-16.0); LYMPHOCYTES % (AUTO) 24 % (12-44); MEAN CORPUSCULAR HEMOGLOBIN 30 pg (25-34); MEAN CORPUSCULAR HGB CONC 34 g/dL (32-36); MEAN CORPUSCULAR VOLUME 87 fL (80-99); MONOCYTES # (AUTO) 0.9 10^3/uL (0.0-1.0); MONOCYTES % (AUTO) 11 % (0-12); NEUTROPHILS # (AUTO) 5.2 10^3/uL (1.8-7.8); NEUTROPHILS % (AUTO) 63 % (42-75); PLATELET COUNT 193 10^3/uL (130-400); WHITE BLOOD COUNT 8.2 10^3/uL (4.3-11.0)
[2021-12-19] MEDS: IBUPROFEN 600 MG (MOTRIN) TAB PO SCH ×4 (06:18→18:53)
[2021-12-19] MEDS ORDERED: PRENATAL VITAMIN 1 EA TAB PO SCH (07:00)
--- NOTE | 2021-12-19 07:38 | Postpartum Progress Note ---
CAROLA TRAN 12/19/21 0738: Note Note Day # 1 Subjective: Patient is without complaints. Ambulating, voiding, but denies BM. Tolerating a regular diet without nausea or vomiting. Normal lochia. Pain is well controlled with oral pain medications. Breast feeding w/o complaints. Objective: VSS afebrile glucometer 129 Physical Exam: General - Alert and oriented, no apparent distress Abdomen - Soft, appropriately tender to palpation, non-distended, fundus firm at umbilicus Extremities - no edema, negative Scottie's bilaterally Assessment: 21 F post- day # 1, status post vaginal delivery. Recovering well, hemodynamically stable Plan: Routine care. Encourage breast feeding. Encourage ambulation. Ferrous sulfate supplementation. Plan for discharge tomorrow 12/20/21 Vitals - Labs Vital Signs - I&O Vital Signs Date Time Temp Pulse Resp B/P (MAP) Pulse Ox O2 Delivery O2 Flow Rate FiO2 12/19/21 03:30 36.6 82 18 131/81 (98) 98 12/19/21 00:00 36.4 72 18 136/80 (98) 100 12/18/21 20:00 36.7 97 18 142/82 (102) 97 12/18/21 18:56 36.9 79 20 136/95 (109) Room Air 12/18/21 18:27 36.8 67 20 162/94 (116) Room Air 12/18/21 17:50 36.6 74 20 147/77 (100) Room Air 12/18/21 17:35 37.0 78 20 133/72 (92) Room Air 12/18/21 17:10 36.9 72 20 149/88 (108) Room Air 12/18/21 16:50 80 20 137/87 (104) 100 Room Air 12/18/21 16:35 69 20 126/63 (84) 100 Room Air 12/18/21 16:20 88 20 170/99 (122) 100 Room Air 12/18/21 16:05 67 20 173/95 (121) 99 Room Air 12/18/21 15:50 71 20 173/97 (122) 98 Room Air 12/18/21 15:35 37.2 69 20 147/83 (104) 97 Room Air 12/18/21 15:20 67 18 162/87 (112) 98 Room Air 12/18/21 15:05 66 18 146/94 (111) 97 Room Air 12/18/21 14:50 71 18 141/87 (105) 98 Room Air 12/18/21 14:35 78 18 140/87 (104) 98 Room Air 12/18/21 14:20 68 18 138/65 (89) 99 Room Air 12/18/21 14:05 72 18 125/67 (86) 98 Room Air 12/18/21 13:50 71 18 127/66 (86) 98 Room Air 12/18/21 13:35 73 18 130/68 (88) 98 Room Air 12/18/21 13:20 73 18 133/65 (87) 98 Room Air 12/18/21 13:05 36.7 73 18 120/72 (88) 97 Room Air 12/18/21 12:50 63 18 130/71 (90) 98 Room Air 12/18/21 12:35 67 18 134/79 (97) 98 Room Air 12/18/21 12:20 67 18 137/80 (99) 98 Room Air 12/18/21 12:05 37.2 68 18 131/76 (94) 96 Room Air 12/18/21 11:50 70 18 131/74 (93) 97 Room Air 12/18/21 11:35 67 18 135/77 (96) 97 Room Air 12/18/21 11:20 74 18 133/79 (97) 98 Room Air 12/18/21 11:05 73 18 132/74 (93) 97 Room Air 12/18/21 10:50 37.2 81 18 122/68 (86) 96 Room Air 12/18/21 10:35 73 18 123/68 (86) 96 Room Air 12/18/21 10:20 37.0 76 18 132/67 (88) 98 Room Air 12/18/21 10:05 76 18 122/75 (91) 97 Room Air 12/18/21 09:50 83 18 120/87 (98) 98 Room Air 12/18/21 09:44 85 18 111/78 (89) 97 Room Air 12/18/21 09:40 80 18 131/74 (93) 97 Room Air 12/18/21 09:37 88 18 141/78 (99) 97 Room Air 12/18/21 09:33 84 18 134/73 (93) 98 Room Air 12/18/21 09:28 81 18 130/73 (92) 97 Room Air 12/18/21 09:24 82 18 132/72 (92) 97 Room Air 12/18/21 09:20 78 18 146/67 (93) 97 Room Air 12/18/21 09:17 78 18 146/66 (92) 97 Room Air 12/18/21 09:13 81 18 147/68 (94) 97 Room Air 12/18/21 09:09 77 18 144/73 (96) 98 Room Air 12/18/21 09:05 87 20 136/73 (94) 98 Room Air 12/18/21 09:00 79 20 142/77 (98) 99 Room Air 12/18/21 08:57 76 20 138/75 (96) 99 Room Air 12/18/21 08:52 85 20 141/73 (95) 98 Room Air 12/18/21 08:48 82 20 135/70 (91) 99 Room Air 12/18/21 08:45 87 20 140/78 (98) 99 Room Air 12/18/21 08:42 79 20 143/75 (97) 98 Room Air 12/18/21 08:38 76 20 145/73 (97) 98 Room Air 12/18/21 08:34 79 20 152/72 (98) 99 Room Air 12/18/21 08:25 73 20 134/84 (101) Room Air 12/18/21 08:10 78 20 133/82 (99) Room Air 12/18/21 07:55 36.5 66 18 134/85 (101) Room Air I & O 12/19/21 07:00 Intake Total 2575 ml Balance 2575 ml Labs Laboratory Tests 12/19/21 05:25: White Blood Count 8.2, Red Blood Count 3.12L, Hemoglobin 9.2L, Hematocrit 27L, Mean Corpuscular Volume 87, Mean Corpuscular Hemoglobin 30, Mean Corpuscular Hemoglobin Concent 34, Red Cell Distribution Width 13.2, Platelet Count 193, Mean Platelet Volume 12.0, Immature Granulocyte % (Auto) 1, Neutrophils (%) (Auto) 63, Lymphocytes (%) (Auto) 24, Monocytes (%) (Auto) 11, Eosinophils (%) (Auto) 2, Basophils (%) (Auto) 0, Neutrophils # (Auto) 5.2, Lymphocytes # (Auto) 2.0, Monocytes # (Auto) 0.9, Eosinophils # (Auto) 0.1, Basophils # (Auto) 0.0, Immature Granulocyte # (Auto) 0.0 12/19/21 06:19: Glucometer 129H LLOYDYOUSIF Lu GAGE 12/19/21 1049: Note Note Verification and Attestation of Medical Student E/M Service A medical student performed and documented this service in my presence. I reviewed and verified all information documented by the medical student and made modifications to such information, when appropriate. I personally performed the physical exam and medical decision making. Yousif Desai, Dec 19, 2021,10:49 CAROLA TRAN Dec 19, 2021 07:38 YOUSIF DESAI DO Dec 19, 2021 10:49
[2021-12-19] MEDS ORDERED: FERROUS SULF 325 MG (IRON) TAB PO SCH (09:00)
--- NOTE | 2021-12-19 09:01 | Postpartum Progress Note ---
Note Note Day #1 Subjective: Patient is without complaints. Ambulating, voiding. Tolerating a regular diet without nausea or vomiting. Normal lochia. Pain is well controlled with oral pain medications. Physical Exam: General - Alert and oriented, no apparent distress Abdomen - Soft, appropriately tender to palpation, non-distended, fundus firm at umbilicus Extremities - no edema, negative Scottie's bilaterally Assessment: Post- day # 1, status post vaginal delivery. Recovering well, hemodynamically stable Acute blood loss anemia Plan: Routine care. Encourage breast feeding. Encourage ambulation. Ferrous sulfate supplementation. Plan for discharge tomorrow Vitals - Labs Vital Signs - I&O Vital Signs Date Time Temp Pulse Resp B/P (MAP) Pulse Ox O2 Delivery O2 Flow Rate FiO2 12/19/21 03:30 36.6 82 18 131/81 (98) 98 12/19/21 00:00 36.4 72 18 136/80 (98) 100 12/18/21 20:00 36.7 97 18 142/82 (102) 97 12/18/21 18:56 36.9 79 20 136/95 (109) Room Air 12/18/21 18:27 36.8 67 20 162/94 (116) Room Air 12/18/21 17:50 36.6 74 20 147/77 (100) Room Air 12/18/21 17:35 37.0 78 20 133/72 (92) Room Air 12/18/21 17:10 36.9 72 20 149/88 (108) Room Air 12/18/21 16:50 80 20 137/87 (104) 100 Room Air 12/18/21 16:35 69 20 126/63 (84) 100 Room Air 12/18/21 16:20 88 20 170/99 (122) 100 Room Air 12/18/21 16:05 67 20 173/95 (121) 99 Room Air 12/18/21 15:50 71 20 173/97 (122) 98 Room Air 12/18/21 15:35 37.2 69 20 147/83 (104) 97 Room Air 12/18/21 15:20 67 18 162/87 (112) 98 Room Air 12/18/21 15:05 66 18 146/94 (111) 97 Room Air 12/18/21 14:50 71 18 141/87 (105) 98 Room Air 12/18/21 14:35 78 18 140/87 (104) 98 Room Air 12/18/21 14:20 68 18 138/65 (89) 99 Room Air 12/18/21 14:05 72 18 125/67 (86) 98 Room Air 12/18/21 13:50 71 18 127/66 (86) 98 Room Air 12/18/21 13:35 73 18 130/68 (88) 98 Room Air 12/18/21 13:20 73 18 133/65 (87) 98 Room Air 12/18/21 13:05 36.7 73 18 120/72 (88) 97 Room Air 12/18/21 12:50 63 18 130/71 (90) 98 Room Air 12/18/21 12:35 67 18 134/79 (97) 98 Room Air 12/18/21 12:20 67 18 137/80 (99) 98 Room Air 12/18/21 12:05 37.2 68 18 131/76 (94) 96 Room Air 12/18/21 11:50 70 18 131/74 (93) 97 Room Air 12/18/21 11:35 67 18 135/77 (96) 97 Room Air 12/18/21 11:20 74 18 133/79 (97) 98 Room Air 12/18/21 11:05 73 18 132/74 (93) 97 Room Air 12/18/21 10:50 37.2 81 18 122/68 (86) 96 Room Air 12/18/21 10:35 73 18 123/68 (86) 96 Room Air 12/18/21 10:20 37.0 76 18 132/67 (88) 98 Room Air 12/18/21 10:05 76 18 122/75 (91) 97 Room Air 12/18/21 09:50 83 18 120/87 (98) 98 Room Air 12/18/21 09:44 85 18 111/78 (89) 97 Room Air 12/18/21 09:40 80 18 131/74 (93) 97 Room Air 12/18/21 09:37 88 18 141/78 (99) 97 Room Air 12/18/21 09:33 84 18 134/73 (93) 98 Room Air 12/18/21 09:28 81 18 130/73 (92) 97 Room Air 12/18/21 09:24 82 18 132/72 (92) 97 Room Air 12/18/21 09:20 78 18 146/67 (93) 97 Room Air 12/18/21 09:17 78 18 146/66 (92) 97 Room Air 12/18/21 09:13 81 18 147/68 (94) 97 Room Air 12/18/21 09:09 77 18 144/73 (96) 98 Room Air 12/18/21 09:05 87 20 136/73 (94) 98 Room Air I & O 12/19/21 07:00 Intake Total 2575 ml Balance 2575 ml Labs Laboratory Tests 12/19/21 05:25: White Blood Count 8.2, Red Blood Count 3.12L, Hemoglobin 9.2L, Hematocrit 27L, Mean Corpuscular Volume 87, Mean Corpuscular Hemoglobin 30, Mean Corpuscular Hemoglobin Concent 34, Red Cell Distribution Width 13.2, Platelet Count 193, Mean Platelet Volume 12.0, Immature Granulocyte % (Auto) 1, Neutrophils (%) (Auto) 63, Lymphocytes (%) (Auto) 24, Monocytes (%) (Auto) 11, Eosinophils (%) (Auto) 2, Basophils (%) (Auto) 0, Neutrophils # (Auto) 5.2, Lymphocytes # (Auto) 2.0, Monocytes # (Auto) 0.9, Eosinophils # (Auto) 0.1, Basophils # (Auto) 0.0, Immature Granulocyte # (Auto) 0.0 12/19/21 06:19: Glucometer 129H CEZAR FLANNERY APRN Dec 19, 2021 09:01
[2021-12-19 09:15] VITALS: BP 130/84
[2021-12-19] MEDS: DOCUSATE SODIUM 100 MG (COLACE) CAP PO SCH (09:20)
[2021-12-19 12:45] VITALS: BP 136/80
--- NOTE | 2021-12-19 13:34 | Anesthesia-Regional Post-Op ---
Regional Patient Condition Mental Status: Alert, Oriented x3 Circulation: Same as Pre-Op Headache: Absent Sensation: Full Recovery Motor Block: Absent Post Op Complications Complications None Follow Up Care/Instructions Patient Instructions None needed. Anesthesia/Patient Condition Patient is doing well, no complaints, stable vital signs, no apparent adverse anesthesia problems. No complications reported per nursing. JESS AYALA CRNA Dec 19, 2021 13:34
[2021-12-19 16:50] VITALS: BP 130/74
[2021-12-19] MEDS ORDERED: WTCHGPD TOP (17:41)
[2021-12-19] MEDS ORDERED: IBUP-844 PO (17:41)
[2021-12-19] MEDS ORDERED: DIBU30OI TOP (17:41)
[2021-12-19] MEDS ORDERED: BENZ78AE5 TP (17:41)
[2021-12-19] MEDS ORDERED: FERR325T24 PO (17:41)
[2021-12-19] MEDS ORDERED: DOCU100C37 PO (17:41)
--- NOTE | 2021-12-19 17:42 | Discharge Inst-Women's Service ---
Discharge Inst-Women's Serv Depart Medication/Instructions New, Converted or Re-Newed RX: Transmitted to Pharmacy Consults/Follow Up Additional Follow Up: Yes (6wk PP appt) Activity Activity: Activity as Tolerated Driving Instructions: No Driving for 1 Week NO SMOKING: NO SMOKING Nothing Inside Vagina: No Douching, No [place], No Tampons Diet Discharge Diet: No Restrictions Symptoms to Report to : Pain Increased, Fever Over 101 Degrees F, Vaginal Bleeding Increase For Any Problems or Questions: Contact Your Physician CEZAR FLANNERY APRN Dec 19, 2021 17:42
[2021-12-19 19:30] VITALS: BP 130/74
== END 2021-12-19 19:30 | disposition home or self-care (01) | DRG 806 ==
LOC: LDRP 19:19
PROVIDERS: ADMIT Obstetrics & Gynecology; ATTEND Obstetrics & Gynecology
PROC: 10E0XZZ Delivery of Products of Conception, External Approach (ICD-10-PCS; principal; 2021-12-18)
PROC: 10907ZC Drainage of Amniotic Fluid, Therapeutic from Products of Conception, Via Natural or Artificial Opening (ICD-10-PCS; 2021-12-18)
PROC: 3E033VJ Introduction of Other Hormone into Peripheral Vein, Percutaneous Approach (ICD-10-PCS; 2021-12-18)
DX: O99.824 Streptococcus B carrier state complicating childbirth (principal); D62 Acute posthemorrhagic anemia; Z37.0 Single live birth; Z3A.39 39 weeks gestation of pregnancy; O24.429 Gestational diabetes mellitus in childbirth, unspecified control; O69.81X0 Labor and delivery complicated by cord around neck, without compression, not applicable or unspecified; O90.81 Anemia of the puerperium
CPT/HCPCS: 36415; 81000; 82947; 85025; 86850; 86900; 86901